=== PATIENT | female | born 1975 | race Caucasian/White ===

== ENCOUNTER → 2017-03-28 | Outpatient (CLI) | payer OTHER ==
--- NOTE | 2017-03-28 16:08 | US ---
EXAMINATION TYPE: US transvaginal DATE OF EXAM: 03/28/2017 8:14 AM COMPARISON: CLINICAL HISTORY: N92.1 Menorrhagia,. Patient stated had endometrial ablation 1 year ago and menses stopped in October 2016, then menses started again March 09, 2017 with intermittent spotting since this LMP. Is taking meds for pain; oral contraceptives were stopped 2 months ago. TECHNIQUE: Transvaginal (TV) per order Date of LMP: 03/09/2017 EXAM MEASUREMENTS: Uterus: 7.3 x 4.1 x 3.0 cm Endometrial Stripe: 0.5 cm Right Ovary: 1.7 x 1.5 x 1.5 cm Left Ovary: 2.2 x 2.2 x 1.6 cm 1. Uterus: Anteverted;C Section scar was noted; multiple Nabothian cysts in CX with largest = 1.1 x 1.0 x 0.7cm 2. Endometrium: thin for day 20 LMP. This may be related to endometrial ablation. The visualization of the endometrial stripe limitation may also be related to endometrial ablation. 3. Right Ovary: better seen TA and wnl 4. Left Ovary: multiple small follicles seen TA 5. Bilateral Adnexa: wnl 6. Posterior cul-de-sac: wnl IMPRESSION: 1. Complex nabothian cyst. 2. Findings within the endometrial canal likely related to prior endometrial ablation.
--- NOTE | 2017-04-02 08:23 | MM ---
Reason for exam: screening (asymptomatic). Last mammogram was performed 6 years and 4 months ago. History: Took hormonal contraceptives for 30 years beginning at age 11. Physical Findings: A clinical breast exam by your physician is recommended on an annual basis and results should be correlated with mammographic findings. MG Screening Mammo w CAD Bilateral CC and MLO view(s) were taken. Prior study comparison: November 17, 2010, bilateral digital screening mammogram. June 25, 2008, mammogram, performed at [facility]. There are scattered fibroglandular densities. No significant changes when compared with prior studies. ASSESSMENT: Negative, BI-RAD 1 RECOMMENDATION: Routine screening mammogram of both breasts in 1 year.
== END | disposition home or self-care (01) ==
LOC: RADUSWWP 07:34
PROVIDERS: ATTEND Obstetrics & Gynecology
DX: Z12.31 Encounter for screening mammogram for malignant neoplasm of breast (principal); N88.8 Other specified noninflammatory disorders of cervix uteri; N92.1 Excessive and frequent menstruation with irregular cycle
CPT/HCPCS: 76830; G0202

== ENCOUNTER 2017-12-06 15:56 | Emergency (ER) | payer OTHER ==
[2017-12-06 16:12] VITALS: BP 127/99; PULSE 106; TEMP 98.9
[2017-12-06 16:26] VITALS: RESP 18
--- NOTE | 2017-12-06 16:33 | ED ---
URI HPI - General Chief Complaint: Upper Respiratory Infection Stated Complaint: Cough Time Seen by Provider: 12/06/17 16:13 Source: patient, RN notes reviewed Mode of arrival: ambulatory Limitations: no limitations - History of Present Illness Initial Comments: This is a 42-year-old female who presents to the emergency department with chief complaint of cough and ear pain. Patient states that her mother and father have recently been diagnosed with influenza A this week. She states that she began to have symptoms on Saturday. She states that she has had a nonproductive cough, bilateral ear pain and runny nose. Patient states that she was treated for bilateral ear infections month and half ago. She states that she has been taking Robitussin and ibuprofen. She denies fever or chills, abdominal pain, nausea or vomiting, diarrhea or constipation. - Related Data Home Medications Medication Instructions Recorded Confirmed Doxepin HCl [SINEquan] 150 mg PO DAILY 06/27/15 02/22/16 Acetaminophen [Tylenol] 325 mg PO Q4H 10/01/15 02/22/16 Melatonin 4 mg PO HS 10/01/15 02/22/16 Previous Rx's Medication Instructions Recorded predniSONE 50 mg PO DAILY #5 tab 02/22/16 Allergies Allergy/AdvReac Type Severity Reaction Status Date / Time diphenhydramine HCl Allergy Unknown Verified 12/06/17 16:12 [From Benadryl] Iodinated Contrast- Oral and Allergy Unknown Verified 12/06/17 16:12 IV Dye [Iodinated Contrast Media - IV Dye] meperidine HCl [From Demerol] Allergy Unknown Verified 12/06/17 16:12 Penicillins Allergy Vomiting Verified 12/06/17 16:12 steroids Allergy Unknown Uncoded 12/06/17 16:12 Review of Systems ROS Statement: Those systems with pertinent positive or pertinent negative responses have been documented in the HPI. ROS Other: All systems not noted in ROS Statement are negative. Past Medical History Past Medical History: Fibromyalgia, Osteoarthritis (OA) Additional Past Medical History / Comment(s): migraines, DDD History of Any Multi-Drug Resistant Organisms: None Reported Past Surgical History: Back Surgery, Section, Orthopedic Surgery Additional Past Surgical History / Comment(s): laprascopy, D&C, sinus surgery, UTERINE ABLASION Past Psychological History: No Psychological Hx Reported Smoking Status: Current every day smoker Past Alcohol Use History: None Reported, Rare Past Drug Use History: None Reported General Exam - General Exam Comments Initial Comments: General: Awake and alert, well-developed; in no apparent distress. Does not appear acutely ill. Afebrile. HEENT: Head atraumatic, normocephalic. Pupils are equal, round and reactive to light. Extraocular movements intact. Oropharynx moist without erythema or exudate. Left TM is pearly with moderate clear effusion. Right TM is pearly without effusion. Neck: Supple. Normal ROM. Cardiovascular: Regular rate and rhythm. No murmurs, rubs or gallops. Chest symmetrical. Respiratory: Lungs clear to auscultation bilaterally. No wheezes, rales or rhonchi. Normal respiratory effort with no use of accessory muscles. Musculoskeletal: Normal ROM, no tenderness bilateral upper and lower extremities. Ambulating normally. Skin: [place], warm and dry without rashes or lesions. Neurological: Alert and oriented x3. CN II-XII grossly intact. Speech is fluent and answers are appropriate. No focal neuro deficits. Psychiatric: Normal mood and affect. No overt signs of depression or anxiety noted. Limitations: no limitations Course Vital Signs 12/06/17 12/06/17 16:09 16:21 Temperature 98.9 F Pulse Rate 106 H Respiratory 22 18 Rate Blood Pressure 127/99 O2 Sat by Pulse 99 Oximetry Medical Decision Making - Medical Decision Making This is a 42-year-old female presents to the emergency department with chief complaint of cold symptoms. Patient has not had any fevers or body aches. She states she has been exposed to her parents who were diagnosed with influenza A. Recommended patient to return if she develops a high spiking fever and body aches. She has had cold symptoms for the past 5 days. Upon presentation, vital signs are stable and she is afebrile. She'll be discharged home. Likely suffering from a viral upper respiratory infection. Patient is in agreement voices understanding. All questions were answered. Disposition Clinical Impression: Upper respiratory infection Disposition: HOME SELF-CARE Condition: Good Instructions: Upper Respiratory Infection (ED) Additional Instructions: Please follow up with primary care provider within 1-2 days. Return to emergency department if symptoms should worsen or any concerns arise. Referrals: Murali Grace MD [Primary Care Provider] - 1-2 days Time of Disposition: 16:38
== END 2017-12-06 16:51 | disposition home or self-care (01) ==
LOC: EC 15:56
DX: J06.9 Acute upper respiratory infection, unspecified (principal); H92.03 Otalgia, bilateral; F17.200 Nicotine dependence, unspecified, uncomplicated; Z79.899 Other long term (current) drug therapy; Z88.0 Allergy status to penicillin; Z88.5 Allergy status to narcotic agent; Z88.8 Allergy status to other drugs, medicaments and biological substances; Z91.041 Radiographic dye allergy status; Z87.39 Personal history of other diseases of the musculoskeletal system and connective tissue; Z20.828 Contact with and (suspected) exposure to other viral communicable diseases
CPT/HCPCS: 99283

== ENCOUNTER 2018-03-26 08:10 | Day surgery (SDC) | payer OTHER ==
[2018-03-24 11:46] VITALS: BMI 38.7
[~2018-03-26 08:10] MED LIST: LACTATED RINGERS 1,000 ML IV SCH; LIDOCAINE 1% 20 ML VIAL (10MG/ML) FOR IV START INTRADERMA PRN
--- NOTE | 2018-03-26 08:14 | P.GSHP ---
History of Present Illness H&P Date: 03/26/18 CHIEF COMPLAINT: GERD and change in bowel habits HISTORY OF PRESENT ILLNESS: The patient is a 42-year-old female who presents with gastroesophageal reflux disease and change in bowel habits. Upper and lower endoscopy were offered for further evaluation and management. PAST MEDICAL HISTORY: Please see list. PAST SURGICAL HISTORY: Please see list. MEDICATIONS: Please see list. ALLERGIES: Please see list. SOCIAL HISTORY: No illicit drug use FAMILY HISTORY: No reports of Crohn disease or ulcerative colitis. REVIEW OF ORGAN SYSTEMS: CONSTITUTIONAL: No reports of fevers or chills. PHYSICAL EXAM: VITAL SIGNS: Stable GENERAL: Well-developed pleasant in no acute distress. HEENT: No scleral icterus. Extraocular movements grossly intact. Moist buccal mucosa. NECK: Supple without lymphadenopathy. CHEST: Unlabored respirations. Equal bilateral excursions. CARDIOVASCULAR: Regular rate and rhythm. Distal 2+ pulses. ABDOMEN: Soft, nondistended. MUSCULOSKELETAL: No clubbing, cyanosis, or edema. ASSESSMENT: 1. Gastroesophageal reflux disease 2. Change in bowel habits PLAN: 1. Recommend proceeding with an upper and lower endoscopy Past Medical History Past Medical History: Fibromyalgia, GERD/Reflux, Osteoarthritis (OA), Skin Disorder Additional Past Medical History / Comment(s): Migraines. DDD. WITH BOWEL MOVEMENT PASSES BLOOD CLOTS FROM RECTUM. ECZEMA. History of Any Multi-Drug Resistant Organisms: None Reported Past Surgical History: Back Surgery, Section, Orthopedic Surgery, Uterine Ablation Additional Past Surgical History / Comment(s): Laprascopy, D&C X2, HYSTEROSCOPY , Sinus Surgery. KNEE SCOPES - 5 ON RT, 2 ON LT. Additional Past Anesthesia/Blood Transfusion Reaction / Comment(s): CRIES WHEN AWAKENING. Smoking Status: Current every day smoker - Past Family History Father Family Medical History: Cancer Additional Family Medical History / Comment(s): SKIN CA Medications and Allergies Home Medications Medication Instructions Recorded Confirmed Type Doxepin HCl [SINEquan] 150 mg PO HS 06/27/15 03/24/18 History Melatonin 10 mg PO HS 10/01/15 03/24/18 History ALPRAZolam [Xanax] 1 mg PO HS 03/24/18 03/24/18 History Cyclobenzaprine [Flexeril] 10 mg PO TID 03/24/18 03/24/18 History FLUoxetine HCL [PROzac] 20 mg PO DAILY 03/24/18 03/24/18 History Hydrocodone/Acetaminophen 1 tab PO QID PRN 03/24/18 03/24/18 History [Hydrocodon-Acetaminoph 7.5-325] Ibuprofen [Motrin] 600 mg PO TID PRN 03/24/18 03/24/18 History Medroxyprogesterone Acetate 150 mg IM Q90D 03/24/18 03/24/18 History [Depo-Provera] Morphine Sulfate 15 mg PO BID 03/24/18 03/24/18 History Morphine Sulfate [Morphine Sulfate 30 mg PO BID 03/24/18 03/24/18 History ER] Omeprazole [PriLOSEC] 20 mg PO AC-BRKFST PRN 03/24/18 03/24/18 History Rizatriptan Benzoate [Rizatriptan] 10 mg PO DAILY PRN 03/24/18 03/24/18 History Allergies Allergy/AdvReac Type Severity Reaction Status Date / Time adhesive Allergy Rash/Hives Verified 03/24/18 11:17 caffeine Allergy Nausea Verified 03/24/18 11:17 diphenhydramine HCl Allergy IF TAKING Verified 03/24/18 11:15 [From Benadryl] MORE THAN 2 TABLETS, ARMS GO NUMB Iodinated Contrast- Oral and Allergy Nausea & Verified 03/24/18 11:15 IV Dye Vomiting, [Iodinated Contrast Media - SEVERE GAINES IV Dye] meperidine HCl [From Demerol] Allergy Rash/Hives; Verified 03/24/18 11:17 LOSS OF VISION TEMPORARY Penicillins Allergy Vomiting Verified 03/24/18 11:17 steroids Allergy INSOMNIA, Uncoded 03/24/18 11:17 INTENSIFIES EFFECTS
[2018-03-26 08:56] VITALS: RESP 16; TEMP 96.4
[2018-03-26] MEDS ORDERED: LIDOCAINE 1% INJ 10MG/ML (20 ML MDV) ONE (09:26)
[2018-03-26] MEDS ORDERED: PROPOFOL 10 MG/ML 20 ML VIAL IV ONE (09:26)
[2018-03-26] MEDS ORDERED: fentaNYL (PF) 50 MCG/ML 2 ML AMP ONE (09:26)
--- NOTE | 2018-03-26 09:39 | P.PCN ---
Date of Procedure: 03/26/18 Description of Procedure: PREOPERATIVE DIAGNOSIS: Gastroesophageal reflux disease. Morbid obesity. POSTOPERATIVE DIAGNOSIS: Morbid obesity. Gastritis. Gastroesophageal reflux disease. Diaphragmatic hiatal hernia without obstruction. OPERATION: Esophagogastroduodenoscopy with biopsies along antrum. SURGEON: Renetta Kendrick MD ANESTHESIA: MAC. INDICATIONS: The patient is a 42-year-old female who presents with a history of reflux disease. Benefits and risks of the procedure were described. Informed consent was obtained. DESCRIPTION: The patient was brought into the endoscopy suite and laid in the left lateral decubitus position. An Olympus gastroscope was passed along the posterior oropharynx down to the distal esophagus where the squamocolumnar junction was encountered at 35 cm from the incisors. The stomach was entered and no bile reflux was found. Additional findings are listed below. Biopsies with cold forceps were obtained of the antrum. The first through third portion of the duodenum was examined and unremarkable. Retroflexion of the scope confirmed Hill grade 3 lower esophageal valve. The squamocolumnar junction demostrated acute LA grade A erosive esophagitis. The stomach was desufflated. The patient tolerated the procedure well. FINDINGS: Squamocolumnar junction 36 cm from the incisors. Diaphragmatic hiatus at 40 cm. Hiatal hernia 4 cm. Hill grade 3 lower esophageal valve. LA grade A erosive esophagitis. Superficial chronic gastritis No active duodenitis. RECOMMENDATIONS: Further recommendations pending results of pathology report. Upper endoscopy as needed.
--- NOTE | 2018-03-26 10:04 | P.PCN ---
Date of Procedure: 03/26/18 Description of Procedure: PREOPERATIVE DIAGNOSIS: Personal history of rectal bleeding. Change in bowel habits POSTOPERATIVE DIAGNOSIS: Personal history of rectal bleeding. Change in bowel habits Tubular adenoma at sigmoid colon Internal hemorrhoids, grade 3 External hemorrhoids, grade 4 Sigmoid diverticulosis OPERATION: Colonoscopy to the ileocecal valve and appendiceal orifice. Colonoscopy with snare polypectomy at 25 cm from the anal verge SURGEON: Renetta Kendrick MD. ANESTHESIA: MAC. INDICATIONS: The patient is a 42-year-old female who presents with change in bowel habits. Benefits and risks were described and informed consent was obtained. DESCRIPTION OF PROCEDURE: The patient had undergone Gatorade, MiraLAX and Dulcolax prep. She had been brought into the operating room and laid in the left lateral decubitus position. After adequate intravenous sedation, the rectum was examined with 2% lidocaine jelly. External hemorrhoids were encountered. The rectal tone was within normal limits. No lesions were palpated in the rectal vault. An Olympus colonoscope was advanced until the ileocecal valve and appendiceal orifice were clearly viewed. The prep was fair with visualization of the mucosal folds. She had a moderately redundant sigmoid colon requiring abdominal wall pressure. The scope was removed with visualization of each mucosal fold. Scattered sigmoid diverticulosis was encountered. Tubular adenoma at 25 cm from the anal verge of 5 mm with snare polypectomy. No evidence of focal colitis was found. Retroflexion of the scope demonstrated grade 3 internal hemorrhoids without active bleeding or inflammation. The colon was desufflated. The patient had tolerated the procedure well. Withdrawal time was over 6 minutes. FINDINGS: Internal hemorrhoids, grade 3 External hemorrhoids, grade 4. No arteriovenous malformations. Removal of 1 polyps - Snare polypectomy 25 cm from the anal verge, 5 mm tubulovillous adenoma polyp at sigmoid colon Sigmoid diverticulosis No focal colitis. RECOMMENDATIONS: Repeat colonoscopy at age 48, in 5 years, 2022 Plan - Discharge Summary New Discharge Prescriptions: No Action Doxepin HCl [SINEquan] 150 mg PO HS Melatonin 10 mg PO HS Ibuprofen [Motrin] 600 mg PO TID PRN PRN Reason: Pain Omeprazole [PriLOSEC] 20 mg PO AC-BRKFST PRN PRN Reason: GERD Rizatriptan Benzoate [Rizatriptan] 10 mg PO DAILY PRN PRN Reason: MIGRAINES ALPRAZolam [Xanax] 1 mg PO HS FLUoxetine HCL [PROzac] 20 mg PO DAILY Cyclobenzaprine [Flexeril] 10 mg PO TID Morphine Sulfate [Morphine Sulfate ER] 30 mg PO BID Morphine Sulfate 15 mg PO BID Medroxyprogesterone Acetate [Depo-Provera] 150 mg IM Q90D Hydrocodone/Acetaminophen [Hydrocodon-Acetaminoph 7.5-325] 1 tab PO QID PRN PRN Reason: Pain Discharge Medication List Doxepin HCl [SINEquan] 150 mg PO HS 06/27/15 [History] Melatonin 10 mg PO HS 10/01/15 [History] ALPRAZolam [Xanax] 1 mg PO HS 03/24/18 [History] Cyclobenzaprine [Flexeril] 10 mg PO TID 03/24/18 [History] FLUoxetine HCL [PROzac] 20 mg PO DAILY 03/24/18 [History] Hydrocodone/Acetaminophen [Hydrocodon-Acetaminoph 7.5-325] 1 tab PO QID PRN [History] Ibuprofen [Motrin] 600 mg PO TID PRN 03/24/18 [History] Medroxyprogesterone Acetate [Depo-Provera] 150 mg IM Q90D 03/24/18 [History] Morphine Sulfate 15 mg PO BID 03/24/18 [History] Morphine Sulfate [Morphine Sulfate ER] 30 mg PO BID 03/24/18 [History] Omeprazole [PriLOSEC] 20 mg PO AC-BRKFST PRN 03/24/18 [History] Rizatriptan Benzoate [Rizatriptan] 10 mg PO DAILY PRN 03/24/18 [History]
[2018-03-26 10:26] VITALS: BP 114/85; PULSE 89
== END 2018-03-26 10:36 | disposition home or self-care (01) ==
LOC: ORWHC2ENDO 08:10
PROVIDERS: ATTEND Surgery Plastic and Reconstructive Surgery
DX: D12.5 Benign neoplasm of sigmoid colon (principal); K63.5 Polyp of colon; K29.50 Unspecified chronic gastritis without bleeding; K57.30 Diverticulosis of large intestine without perforation or abscess without bleeding; K64.8 Other hemorrhoids; K64.4 Residual hemorrhoidal skin tags; M19.90 Unspecified osteoarthritis, unspecified site; M79.7 Fibromyalgia; K62.5 Hemorrhage of anus and rectum; K44.9 Diaphragmatic hernia without obstruction or gangrene; E66.01 Morbid (severe) obesity due to excess calories; K21.9 Gastro-esophageal reflux disease without esophagitis; F32.9 Major depressive disorder, single episode, unspecified; Z79.891 Long term (current) use of opiate analgesic; Z88.0 Allergy status to penicillin; Z88.5 Allergy status to narcotic agent; Z88.8 Allergy status to other drugs, medicaments and biological substances; Z91.041 Radiographic dye allergy status; Z68.38 Body mass index [BMI] 38.0-38.9, adult; F17.200 Nicotine dependence, unspecified, uncomplicated; Z79.899 Other long term (current) drug therapy; Z91.048 Other nonmedicinal substance allergy status
CPT/HCPCS: 81025; 88305; 45385; 43239; J2001; J3010; J2704

== ENCOUNTER 2019-03-12 15:38 | Emergency (ER) | payer OTHER ==
[2019-03-12] MEDS ORDERED: ACETAMINOPHEN TAB 500 MG TAB PO STA (16:14)
--- NOTE | 2019-03-12 16:18 | ED ---
General Adult HPI - General Chief complaint: Chest Pain Stated complaint: Chest heaviness Time Seen by Provider: 03/12/19 15:50 Source: patient, RN notes reviewed Mode of arrival: wheelchair Limitations: no limitations - History of Present Illness Initial comments: This is a 43-year-old female presents emergency room complaining of heaviness on her chest that goes up into her neck. Patient states she's also short of breath and coughing quite a bit. Patient states she has not coughed up any sputum at all. Patient denies any fever or chills. Patient states exertion definitely makes it worse. Patient states she feels as though her heart is racing. Patient denies any lightheadedness or dizziness. Patient denies headache patient denies numbness weakness. Patient denies abdominal pain patient denies nausea vomiting diarrhea. - Related Data Home Medications Medication Instructions Recorded Confirmed Doxepin HCl [SINEquan] 150 mg PO HS 06/27/15 03/12/19 Cyclobenzaprine [Flexeril] 10 mg PO TID 03/24/18 03/12/19 FLUoxetine HCL [PROzac] 20 mg PO DAILY 03/24/18 03/12/19 Hydrocodone/Acetaminophen 1 tab PO QID PRN 03/24/18 03/12/19 [Hydrocodon-Acetaminoph 7.5-325] Ibuprofen [Motrin] 600 mg PO TID PRN 03/24/18 03/12/19 Medroxyprogesterone Acetate 150 mg IM Q90D 03/24/18 03/12/19 [Depo-Provera] Morphine Sulfate [Morphine Sulfate 30 mg PO BID PRN 03/24/18 03/12/19 ER] Omeprazole [PriLOSEC] 20 mg PO AC-BRKFST PRN 03/24/18 03/12/19 ALPRAZolam [Xanax] 0.5 mg PO HS 03/12/19 03/12/19 Melatonin 10 mg PO HS 03/12/19 03/12/19 Morphine Sulfate [Ms Contin] 15 mg PO BID PRN 03/12/19 03/12/19 guaiFENesin [Mucinex] 600 mg PO BID PRN 03/12/19 03/12/19 Previous Rx's Medication Instructions Recorded Azithromycin [Zithromax Tri-Onur] 500 mg PO DAILY #3 tab 03/12/19 Allergies Allergy/AdvReac Type Severity Reaction Status Date / Time adhesive Allergy Rash/Hives Verified 03/12/19 17:25 caffeine Allergy Nausea Verified 03/12/19 17:25 diphenhydramine HCl Allergy IF TAKING Verified 03/12/19 17:25 [From Benadryl] MORE THAN 2 TABLETS, ARMS GO NUMB Iodinated Contrast- Oral and Allergy Nausea & Verified 03/12/19 17:25 IV Dye Vomiting, [Iodinated Contrast Media - SEVERE GAINES IV Dye] meperidine HCl [From Demerol] Allergy Rash/Hives; Verified 03/12/19 17:25 LOSS OF VISION TEMPORARY Penicillins Allergy Vomiting Verified 03/12/19 17:25 steroids Allergy INSOMNIA, Uncoded 03/12/19 15:53 INTENSIFIES EFFECTS Review of Systems ROS Statement: Those systems with pertinent positive or pertinent negative responses have been documented in the HPI. ROS Other: All systems not noted in ROS Statement are negative. Past Medical History Past Medical History: Fibromyalgia, GERD/Reflux, Osteoarthritis (OA), Skin Disorder Additional Past Medical History / Comment(s): Migraines. DDD. WITH BOWEL MOVEMENT PASSES BLOOD CLOTS FROM RECTUM. ECZEMA. History of Any Multi-Drug Resistant Organisms: None Reported Past Surgical History: Back Surgery, Section, Orthopedic Surgery, Uterine Ablation Additional Past Surgical History / Comment(s): Laprascopy, D&C X2, HYSTEROSCOPY, Sinus Surgery. KNEE SCOPES - 5 ON RT, 2 ON LT. Additional Past Anesthesia/Blood Transfusion Reaction / Comment(s): CRIES WHEN AWAKENING. Past Psychological History: Anxiety, Depression, Panic Disorder Smoking Status: Current every day smoker Past Alcohol Use History: None Reported Past Drug Use History: None Reported - Past Family History Father Family Medical History: Cancer Additional Family Medical History / Comment(s): SKIN CA General Exam - General Exam Comments Initial Comments: GENERAL: Patient is well-developed and well-nourished. Patient is nontoxic and well- hydrated and is in mild distress. ENT: Neck is soft and supple. No significant lymphadenopathy is noted. Oropharynx is clear. Moist mucous membranes. Neck has full range of motion without eliciting any pain. EYES: The sclera were anicteric and conjunctiva were pink and moist. Extraocular mo vements were intact and pupils were equal round and reactive to light. Eyelids were unremarkable. PULMONARY: Unlabored respirations. Good breath sounds bilaterally. No audible rales rhonchi or wheezing was noted. CARDIOVASCULAR: There is a regular rate and rhythm without any murmurs gallops or rubs. ABDOMEN: Soft and nontender with normal bowel sounds. No palpable organomegaly was noted. There is no palpable pulsatile mass. SKIN: Skin is clear with no lesions or rashes and otherwise unremarkable. NEUROLOGIC: Patient is alert and oriented x3. Cranial nerves II through XII are grossly intact. Motor and sensory are also intact. Normal speech, volume and content. Symmetrical smile. MUSCULOSKELETAL: Normal extremities with adequate strength and full range of motion. No lower extremity swelling or edema. No calf tenderness. LYMPHATICS: No significant lymphadenopathy is noted PSYCHIATRIC: Normal psychiatric evaluation. Limitations: no limitations Course Vital Signs 03/12/19 03/12/19 03/12/19 15:50 16:10 16:21 Temperature 99.5 F 100.6 F H Pulse Rate 117 H 117 H Respiratory 16 18 Rate Blood Pressure 115/81 120/89 120/89 O2 Sat by Pulse 93 L 92 L 97 Oximetry 03/12/19 03/12/19 03/12/19 16:30 17:00 17:30 Temperature Pulse Rate 114 H 112 H 105 H Respiratory 18 19 19 Rate Blood Pressure 113/81 136/91 119/80 O2 Sat by Pulse 92 L 93 L 94 L Oximetry Medical Decision Making - Medical Decision Making EKG shows sinus tachycardia at 118 bpm GA interval is on a 44 QRS is 90 QT interval 342 QTC is 479. Chest x-ray shows pneumonia. Patient received Rocephin and Zithromax in the emergency department. I spoke with the patient and told her I thought it would be better if we could admit her to the hospital she did not want to be admitted she stated she only lives 4 blocks away and will come back immediately if things worsen. - Lab Data Result diagrams: 03/12/19 16:41 03/12/19 16:41 Lab Results 03/12/19 03/12/19 03/12/19 Range/Units 16:41 16:41 16:41 WBC 11.5 H (3.8-10.6) k/uL RBC 4.74 (3.80-5.40) m/uL Hgb 13.6 (11.4-16.0) gm/dL Hct 41.4 (34.0-46.0) % MCV 87.4 (80.0-100.0) fL MCH 28.8 (25.0-35.0) pg MCHC 32.9 (31.0-37.0) g/dL RDW 14.2 (11.5-15.5) % Plt Count 286 (150-450) k/uL Neutrophils % 71 % Lymphocytes % 22 % Monocytes % 4 % Eosinophils % 2 % Basophils % 0 % Neutrophils # 8.1 H (1.3-7.7) k/uL Lymphocytes # 2.6 (1.0-4.8) k/uL Monocytes # 0.4 (0-1.0) k/uL Eosinophils # 0.3 (0-0.7) k/uL Basophils # 0.0 (0-0.2) k/uL PT (9.0-12.0) sec INR (<1.2) APTT (22.0-30.0) sec D-Dimer (<0.60) mg/L FEU Sodium 137 (137-145) mmol/L Potassium 3.8 (3.5-5.1) mmol/L Chloride 106 (98-107) mmol/L Carbon Dioxide 19 L (22-30) mmol/L Anion Gap 12 mmol/L BUN 13 (7-17) mg/dL Creatinine 0.47 L (0.52-1.04) mg/dL Est GFR (CKD-EPI)AfAm >90 (>60 ml/min/1.73 sqM) Est GFR (CKD-EPI)NonAf >90 (>60 ml/min/1.73 sqM) Glucose 192 H (74-99) mg/dL Plasma Lactic Acid Antione 1.1 (0.7-2.0) mmol/L Calcium 9.5 (8.4-10.2) mg/dL Magnesium 1.7 (1.6-2.3) mg/dL Total Bilirubin 0.6 (0.2-1.3) mg/dL AST 23 (14-36) U/L ALT 24 (9-52) U/L Alkaline Phosphatase 120 (38-126) U/L Troponin I (0.000-0.034) ng/mL NT-Pro-B Natriuret Pep pg/mL Total Protein 7.3 (6.3-8.2) g/dL Albumin 4.2 (3.5-5.0) g/dL 03/12/19 03/12/19 03/12/19 Range/Units 16:41 16:41 16:58 WBC (3.8-10.6) k/uL RBC (3.80-5.40) m/uL Hgb (11.4-16.0) gm/dL Hct (34.0-46.0) % MCV (80.0-100.0) fL MCH (25.0-35.0) pg MCHC (31.0-37.0) g/dL RDW (11.5-15.5) % Plt Count (150-450) k/uL Neutrophils % % Lymphocytes % % Monocytes % % Eosinophils % % Basophils % % Neutrophils # (1.3-7.7) k/uL Lymphocytes # (1.0-4.8) k/uL Monocytes # (0-1.0) k/uL Eosinophils # (0-0.7) k/uL Basophils # (0-0.2) k/uL PT 9.6 (9.0-12.0) sec INR 0.9 (<1.2) APTT 23.5 (22.0-30.0) sec D-Dimer 0.74 H (<0.60) mg/L FEU Sodium (137-145) mmol/L Potassium (3.5-5.1) mmol/L Chloride (98-107) mmol/L Carbon Dioxide (22-30) mmol/L Anion Gap mmol/L BUN (7-17) mg/dL Creatinine (0.52-1.04) mg/dL Est GFR (CKD-EPI)AfAm (>60 ml/min/1.73 sqM) Est GFR (CKD-EPI)NonAf (>60 ml/min/1.73 sqM) Glucose (74-99) mg/dL Plasma Lactic Acid Antione (0.7-2.0) mmol/L Calcium (8.4-10.2) mg/dL Magnesium (1.6-2.3) mg/dL Total Bilirubin (0.2-1.3) mg/dL AST (14-36) U/L ALT (9-52) U/L Alkaline Phosphatase (38-126) U/L Troponin I <0.012 (0.000-0.034) ng/mL NT-Pro-B Natriuret Pep 34 pg/mL Total Protein (6.3-8.2) g/dL Albumin (3.5-5.0) g/dL Disposition Clinical Impression: Pneumonia Disposition: HOME SELF-CARE Condition: Good Instructions (If sedation given, give patient instructions): Bacterial Pneumonia (ED) Prescriptions: Azithromycin [Zithromax Tri-Onur] 500 mg PO DAILY #3 tab Is patient prescribed a controlled substance at d/c from ED?: No When asked, does pt state using other controlled substances?: No Referrals: Murali Grace MD [Primary Care Provider] - 1-2 days Time of Disposition: 20:49
[2019-03-12 16:54] LABS: Basophils % (A) 0 %; Eosinophils # (A) 0.3 k/uL (0-0.7); Eosinophils % (A) 2 %; HCT 41.4 % (34.0-46.0); HGB 13.6 gm/dL (11.4-16.0); Lymphocytes # (A) 2.6 k/uL (1.0-4.8); Lymphocytes % (A) 22 %; MCH 28.8 pg (25.0-35.0); MCHC 32.9 g/dL (31.0-37.0); MCV 87.4 fL (80.0-100.0); Mean Platelet Volume 8.2; Monocytes # (A) 0.4 k/uL (0-1.0); Monocytes % (A) 4 %; Neutrophils # (A) 8.1 k/uL (1.3-7.7); Neutrophils % (A) 71 %; Platelet Count 286 k/uL (150-450); RBC 4.74 m/uL (3.80-5.40); RDW 14.2 % (11.5-15.5); WBC 11.5 k/uL (3.8-10.6)
[2019-03-12 17:01] LABS: ALT 24 U/L (9-52); AST 23 U/L (14-36); Albumin 4.2 g/dL (3.5-5.0); Alkaline Phosphatase 120 U/L (38-126); Anion Gap 12 mmol/L; Blood Urea Nitrogen 13 mg/dL (7-17); Calcium 9.5 mg/dL (8.4-10.2); Carbon Dioxide 19 mmol/L (22-30); Chloride 106 mmol/L (98-107); Glucose 192 mg/dL (74-99); Magnesium 1.7 mg/dL (1.6-2.3); Potassium 3.8 mmol/L (3.5-5.1); Sodium 137 mmol/L (137-145); Total Bilirubin 0.6 mg/dL (0.2-1.3); Total Protein 7.3 g/dL (6.3-8.2)
--- NOTE | 2019-03-12 17:12 | XR ---
EXAMINATION TYPE: XR chest 2V DATE OF EXAM: 03/12/2019 COMPARISON: NONE HISTORY: Short of breath TECHNIQUE: Frontal and lateral views of the chest are obtained. FINDINGS: There is some coarse interstitial and linear density in the lower lung najera. Heart and m ediastinum are normal. There is no pleural effusion. Bony thorax is intact. There are chest leads. IMPRESSION: Interstitial pulmonary infiltrates and atelectasis in the mid and lower lung najera more on the left side. Normal heart. No heart failure.
[2019-03-12] MEDS ORDERED: cefTRIAXone IN SWFI 1,000 MG/10 ML SYRINGE IVP STA ×2 (18:11→20:50)
[2019-03-12 18:43] LABS: INR 0.9 (<1.2); Partial Thromboplastin Time 23.5 sec (22.0-30.0); Prothrombin Time 9.6 sec (9.0-12.0)
[2019-03-12 18:51] LABS: D-Dimer 0.74 mg/L FEU (<0.60)
[2019-03-12] MEDS ORDERED: FAMOTIDINE 20 MG/2 ML VIAL IV STA (19:15)
[2019-03-12] MEDS ORDERED: diphenhydrAMINE 50 MG/ML 1 ML VIAL IVP STA (19:15)
[2019-03-12] MEDS ORDERED: methylPREDNISolone SOD SUCCI 125 MG/2 ML VIAL IV STA (19:15)
--- NOTE | 2019-03-12 20:41 | CT ---
EXAMINATION TYPE: CT chest angio for PE DATE OF EXAM: 03/12/2019 COMPARISON: None HISTORY: Pt c/o chest heaviness, headache. CT DLP: 554.6 mGycm Automated exposure control for dose reduction was used. CONTRAST: CT Chest for pulmonary embolism performed with with IV Contrast, patient injected with 100 mL of Isov ue 370. FINDINGS: There is some patchy atelectasis in the posterior lateral right lower lobe. There is coarse predomina ntly interstitial infiltrate in the left upper lobe and left lower lobe. I see no pulmonary mass. The re is no pleural effusion. There is no evidence of thoracic aortic aneurysm or dissection. There is n o mediastinal adenopathy. There are no hilar masses. There is evidence of some fatty infiltration of the liver. I see no filling defects in the pulmonary arteries. The bony thorax is intact. There is small left pl eural effusion. IMPRESSION: No evidence of pulmonary embolism. Left pleural effusion with diffuse extensive interstitial infiltra te in the left lung. Patchy atelectasis right lower lobe. This is consistent with inflammatory diseas e.
[2019-03-12] MEDS ORDERED: AZITHROMYCIN 500 MG TAB PO STA (20:50)
[2019-03-12 21:19] VITALS: BP 135/90; PULSE 101; RESP 18; TEMP 97.9
== END 2019-03-12 21:29 | disposition home or self-care (01) ==
LOC: EC 15:38
DX: J18.9 Pneumonia, unspecified organism (principal); M79.7 Fibromyalgia; K21.9 Gastro-esophageal reflux disease without esophagitis; M19.90 Unspecified osteoarthritis, unspecified site; F32.9 Major depressive disorder, single episode, unspecified; F41.0 Panic disorder [episodic paroxysmal anxiety]; F17.200 Nicotine dependence, unspecified, uncomplicated; Z79.899 Other long term (current) drug therapy; Z88.0 Allergy status to penicillin; Z88.8 Allergy status to other drugs, medicaments and biological substances; Z91.041 Radiographic dye allergy status; Z91.018 Allergy to other foods; Z91.048 Other nonmedicinal substance allergy status
CPT/HCPCS: 36415; 93005; 85379; 83880; 80053; 83605; 83735; 84484; 85025; 85610; 85730; 87040; 71046; 71275; 99285; 96374; 96375 ×3; 96376; J1200; J2930; J0696; Q9967

== ENCOUNTER → 2019-10-05 | Outpatient (CLI) | payer OTHER ==
[2019-10-05 08:46] LABS: Appearance,Urine Cloudy (Clear); Bacteria,Urine Rare /hpf; Bilirubin,Urine Negative (Negative); Blood,Urine Trace (Negative); Color,Urine Yellow; Glucose,Urine (UA) Trace (Negative); Ketones,Urine Negative (Negative); Leukocyte Esterase,Urine Moderate (Negative); Mucus,Urine Many /hpf; Nitrite,Urine Negative (Negative); PH, Urine 5.5 (5.0-8.0); Protein,Urine 1+ (Negative); RBC,Urine 2 /hpf (0-5); Specific Gravity,Urine 1.029 (1.001-1.035); Squamous Epithelial Cell,Urine 43 /hpf (0-4); Urobilinogen,Urine <2.0 mg/dL (<2.0); WBC,Urine 14 /hpf (0-5)
[2019-10-05 08:47] LABS: Basophils % (A) 0 %; Eosinophils # (A) 0.2 k/uL (0-0.7); Eosinophils % (A) 2 %; Lymphocytes # (A) 4.9 k/uL (1.0-4.8); Lymphocytes % (A) 44 %; MCHC 33.2 g/dL (31.0-37.0); MCV 87.4 fL (80.0-100.0); Mean Platelet Volume 7.1; Monocytes # (A) 0.5 k/uL (0-1.0); Monocytes % (A) 4 %; Neutrophils # (A) 5.4 k/uL (1.3-7.7); Neutrophils % (A) 48 %; Platelet Count 269 k/uL (150-450); RBC 4.81 m/uL (3.80-5.40); RDW 13.4 % (11.5-15.5); WBC 11.2 k/uL (3.8-10.6)
[2019-10-05 11:38] LABS: Erythrocyte Sedimentation Rate 22 mm/hr (0-20)
[2019-10-05 18:17] LABS: Urine Creatinine 274.4 mg/dL
[2019-10-05 18:19] LABS: ALT 21 U/L (8-44); AST 17 U/L (13-35); African American GFR (CKD) 88.9 (60.0-200.0); Alkaline Phosphatase 110 U/L (41-126); BUN/Creat Ratio 15.56 Ratio (12.00-20.00); Calcium 9.6 mg/dL (8.7-10.3); Carbon Dioxide 21.2 mmol/L (21.6-31.8); Chloride 107 mmol/L (96-109); Chol/HDL Ratio 5.05; Cholesterol 192 mg/dL (0-200); Globulin 2.1 g/dL (1.6-3.3); Glucose 184 mg/dL (70-110); LDL Cholesterol,Calculated 101.8 mg/dL (0.0-131.0); Non-African American GFR(CKD) 76.7 (60.0-200.0); Potassium 4.4 mmol/L (3.5-5.5); Rheumatoid Factor, Qnt <4 IU/mL (0-15); Sodium 138 mmol/L (135-145); Total Bilirubin 0.2 mg/dL (0.3-1.2); Total Protein 6.5 g/dL (6.2-8.2)
== END ==
LOC: LABWHC1 07:54
PROVIDERS: ATTEND Internal Medicine
DX: E11.65 Type 2 diabetes mellitus with hyperglycemia (principal); M51.26 Other intervertebral disc displacement, lumbar region; E55.9 Vitamin D deficiency, unspecified
CPT/HCPCS: 36415; 80053; 80061; 81001; 82043; 82306; 82570; 85025; 85652; 86038; 86431

== ENCOUNTER → 2019-10-20 | Outpatient (CLI) | payer OTHER | END | disposition home or self-care (01) | LOC: CPPFTMAIN 12:50 | PROVIDERS: ATTEND Internal Medicine | DX: J45.909 Unspecified asthma, uncomplicated (principal); J98.4 Other disorders of lung | CPT/HCPCS: 94060; 94726; 94729 ==

== ENCOUNTER → 2020-05-30 | Outpatient (CLI) | payer OTHER ==
[2020-05-30 14:03] LABS: Basophils # (A) 0.1 k/uL (0-0.2); Basophils % (A) 1 %; Eosinophils # (A) 0.3 k/uL (0-0.7); Eosinophils % (A) 3 %; HCT 42.2 % (34.0-46.0); HGB 13.7 gm/dL (11.4-16.0); Lymphocytes # (A) 4.2 k/uL (1.0-4.8); Lymphocytes % (A) 39 %; MCH 29.6 pg (25.0-35.0); MCHC 32.4 g/dL (31.0-37.0); MCV 91.4 fL (80.0-100.0); Mean Platelet Volume 8.6; Monocytes # (A) 0.5 k/uL (0-1.0); Monocytes % (A) 4 %; Neutrophils # (A) 5.6 k/uL (1.3-7.7); Neutrophils % (A) 52 %; Platelet Count 261 k/uL (150-450); RBC 4.62 m/uL (3.80-5.40); RDW 13.8 % (11.5-15.5); WBC 10.7 k/uL (3.8-10.6)
[2020-05-31 04:08] LABS: African American GFR (CKD) 102.5 (60.0-200.0); Albumin 4.6 g/dL (3.80-4.90); BUN/Creat Ratio 23.75 Ratio (12.00-20.00); Calcium 9.4 mg/dL (8.7-10.3); Chol/HDL Ratio 4.56; Globulin 2.3 g/dL (1.6-3.3); LDL Cholesterol,Calculated 119.6 mg/dL (0.0-131.0); Non-African American GFR(CKD) 88.4 (60.0-200.0); Potassium 4.6 mmol/L (3.5-5.5); Total Bilirubin 0.3 mg/dL (0.2-1.2); Total Protein 6.9 g/dL (6.2-8.2); VLDL Calculation 33.4 mg/dL (5.00-40.00)
== END | disposition home or self-care (01) ==
LOC: LABWHC1 11:24
PROVIDERS: ATTEND Internal Medicine
DX: E11.65 Type 2 diabetes mellitus with hyperglycemia (principal); E55.9 Vitamin D deficiency, unspecified; Z51.81 Encounter for therapeutic drug level monitoring; Z13.9 Encounter for screening, unspecified
CPT/HCPCS: 36415; 80053; 80061; 82306; 85025; 86803

== ENCOUNTER → 2020-12-06 | Outpatient (CLI) | payer OTHER ==
--- NOTE | 2020-12-06 10:17 | MR ---
EXAMINATION TYPE: MR lumbar spine wo con DATE OF EXAM: 12/06/2020 COMPARISON: MRI lumbar spine October 11, 2017 HISTORY: Lower back pain, Tailbone pain into both legs. Bilateral Hip Pain Left side worse. 2 Falls i n the last year. Prior surgery 2002. TECHNIQUE: Multiplanar, multisequence imaging of the lumbar spine is performed without IV contrast. FINDINGS: Sagittal images of the lumbar spine show vertebral body heights and alignment to appear sta ble and satisfactory. Persistent multilevel disc desiccation with moderate disc space narrowing L5-S1 level. The conus medullaris remains normal in position and signal ending mid L1 level. Heterogeneou s Modic type I endplate changes L5-S1 level. The bone marrow signal intensity otherwise remains withi n normal limits. Axial images show T12-L1, L1-L2, and L2-L3 levels all to remain within normal limits. Axial images at L3-L4 and L4-L5 levels show mild facet degenerative changes bilaterally. Spinal canal is preserved. Patent bilateral neural foramina. No significant change from prior. Axial images at L5-S1 level shows mild to moderate broad disc bulge with small left paracentral disc protrusion component, more focal moderate-sized trusion extending inferiorly on prior study is improv ed on current study. Minimal effacement of the anterior thecal sac. No central S1 nerve effacement or lateral recess effacement on current study. Mild facet arthropathy bilaterally. Mild bilateral neura l foraminal narrowing. Paraspinal muscle bulk is preserved. IMPRESSION: Improved disc herniation L5-S1 level noted. Mild degenerative changes mid to lower lumbar spine otherwise show no significant interval progression. No new significant disc herniations presen t.
== END | disposition home or self-care (01) ==
LOC: RADMRIMAIN 07:46
PROVIDERS: ATTEND Internal Medicine
DX: M47.816 Spondylosis without myelopathy or radiculopathy, lumbar region (principal); G89.29 Other chronic pain
CPT/HCPCS: 72148

== ENCOUNTER 2021-04-17 20:47 | Emergency (ER) | payer OTHER ==
[2021-04-17 21:21] VITALS: BP 125/92; PULSE 112; RESP 18; TEMP 98
--- NOTE | 2021-04-17 21:27 | ED ---
Fall HPI - General Chief Complaint: Fall Stated Complaint: Fall Time Seen by Provider: 04/17/21 21:16 Source: EMS, RN notes reviewed, old records reviewed Mode of arrival: EMS - History of Present Illness Initial Comments: This is a 45-year-old female DF for evaluation patient Dese for evaluation after a fall. Patient has multiple areas of pain but no specific injury. Patient complaining of back pain knee pain and ankle pain etc. 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: no Place Fall Occurred: home Loss of Consciousness: none Prolonged Down Time?: no Symptoms Prior to Fall: none Location - Extremities: Left: Knee, Ankle, Right: Knee, Ankle Severity: moderate Severity scale (1-10): 3 Quality: dull Context: tripped/slipped Associated Symptoms: denies - Related Data Home Medications Medication Instructions Recorded Confirmed Doxepin HCl [SINEquan] 150 mg PO HS 06/27/15 03/12/19 Cyclobenzaprine [Flexeril] 10 mg PO TID 03/24/18 03/12/19 FLUoxetine HCL [PROzac] 20 mg PO DAILY 03/24/18 03/12/19 Hydrocodone/Acetaminophen 1 tab PO QID PRN 03/24/18 03/12/19 [Hydrocodon-Acetaminoph 7.5-325] Ibuprofen [Motrin] 600 mg PO TID PRN 03/24/18 03/12/19 Medroxyprogesterone Acetate 150 mg IM Q90D 03/24/18 03/12/19 [Depo-Provera] Morphine Sulfate [Morphine Sulfate 30 mg PO BID PRN 03/24/18 03/12/19 ER] Omeprazole [PriLOSEC] 20 mg PO AC-BRKFST PRN 03/24/18 03/12/19 ALPRAZolam [Xanax] 0.5 mg PO HS 03/12/19 03/12/19 Melatonin 10 mg PO HS 03/12/19 03/12/19 Morphine Sulfate [Ms Contin] 15 mg PO BID PRN 03/12/19 03/12/19 guaiFENesin [Mucinex] 600 mg PO BID PRN 05/09/19 05/09/19 Previous Rx's Medication Instructions Recorded Azithromycin [Zithromax Tri-Onur] 500 mg PO DAILY #3 tab 03/12/19 Allergies Allergy/AdvReac Type Severity Reaction Status Date / Time adhesive Allergy Rash/Hives Verified 04/17/21 21:17 caffeine Allergy Nausea Verified 04/17/21 21:17 diphenhydramine HCl Allergy IF TAKING Verified 04/17/21 21:17 [From Benadryl] MORE THAN 2 TABLETS, ARMS GO NUMB Iodinated Contrast Media Allergy Nausea & Verified 04/17/21 21:17 [Iodinated Contrast Media - Vomiting, IV Dye] SEVERE GAINES meperidine HCl [From Demerol] Allergy Rash/Hives; Verified 04/17/21 21:17 LOSS OF VISION TEMPORARY Penicillins Allergy Vomiting Verified 04/17/21 21:17 steroids Allergy INSOMNIA, Uncoded 03/12/19 15:53 INTENSIFIES EFFECTS Review of Systems ROS Statement: Those systems with pertinent positive or pertinent negative responses have been documented in the HPI. ROS Other: All systems not noted in ROS Statement are negative. Past Medical History Past Medical History: Fibromyalgia, GERD/Reflux, Osteoarthritis (OA), Skin Disorder Additional Past Medical History / Comment(s): Migraines. DDD. WITH BOWEL MOVEMENT PASSES BLOOD CLOTS FROM RECTUM. ECZEMA. History of Any Multi-Drug Resistant Organisms: None Reported Past Surgical History: Back Surgery, Section, Orthopedic Surgery, Uterine Ablation Additional Past Surgical History / Comment(s): Laprascopy, D&C X2, HYSTEROSCOPY, Sinus Surgery. KNEE SCOPES - 5 ON RT, 2 ON LT. Additional Past Anesthesia/Blood Transfusion Reaction / Comment(s): CRIES WHEN AWAKENING. Past Psychological History: Anxiety, Depression, Panic Disorder Smoking Status: Current every day smoker Past Alcohol Use History: None Reported Past Drug Use History: None Reported - Past Family History Father Family Medical History: Cancer Additional Family Medical History / Comment(s): SKIN CA General Exam Limitations: no limitations General appearance: alert, in no apparent distress, anxious Head exam: Present: atraumatic, normocephalic, normal inspection Eye exam: Present: normal appearance, PERRL, EOMI. Absent: scleral icterus, conjunctival injection, periorbital swelling ENT exam: Present: normal exam, mucous membranes moist Neck exam: Present: normal inspection. Absent: tenderness, meningismus, lymphadenopathy Respiratory exam: Present: normal lung sounds bilaterally. Absent: respiratory distress, wheezes, rales, rhonchi, stridor Cardiovascular Exam: Present: normal rhythm, tachycardia, normal heart sounds. Absent: systolic murmur, diastolic murmur, rubs, gallop, clicks GI/Abdominal exam: Present: soft, normal bowel sounds. Absent: distended, tenderness, guarding, rebound, rigid Extremities exam: Present: normal inspection, full ROM, normal capillary refill. Absent: tenderness, pedal edema, joint swelling, calf tenderness Back exam: Present: normal inspection Neurological exam: Present: alert, oriented X3, CN II-XII intact Psychiatric exam: Present: normal affect, normal mood Skin exam: Present: warm, dry, intact, normal color. Absent: rash Course Vital Signs 04/17/21 21:11 Temperature 98 F Pulse Rate 112 H Respiratory 18 Rate Blood Pressure 125/92 O2 Sat by Pulse 97 Oximetry - Reevaluation(s) Reevaluation #1: Medical records reviewed Symptoms are significantly improved here in the ER Patient informed of results and questions answered Medical Decision Making - Medical Decision Making 45 female after fall and rise pain. X-rays are negative patient can be discharged home - Radiology Data Radiology results: report reviewed (Multiple plain film x-rays taken and areas of pain, no fractures noted), image reviewed Disposition Clinical Impression: Fall Disposition: HOME SELF-CARE Condition: Good Instructions (If sedation given, give patient instructions): Fall Prevention for Older Adults (ED) Is patient prescribed a controlled substance at d/c from ED?: No Referrals: Ana Richardson MD [Primary Care Provider] - 1-2 days
[2021-04-17] MEDS ORDERED: KETOROLAC 15 MG/ML 1 ML VIAL IVP STA (22:27)
[2021-04-17] MEDS ORDERED: MORPHINE SULFATE 4 MG/ML SYRINGE IVP STA (22:27)
[2021-04-17] MEDS ORDERED: ACETAMINOPHEN TAB 500 MG TAB PO STA (22:27)
--- NOTE | 2021-04-17 23:06 | XR ---
EXAMINATION TYPE: XR chest 1V DATE OF EXAM: 04/17/2021 COMPARISON: 03/12/2019 HISTORY: Fall. Pain. TECHNIQUE: Single view FINDINGS: There is poor inspiration. There is some mild atelectasis right lung base. Heart and medias tinum are normal. There are no hilar masses. There is no pleural effusion or pneumothorax. IMPRESSION: Poor inspiration similar to old exam. There is improved aeration of both lungs at the rolando g bases compared to old exam. Mild basilar atelectasis on the right side.
--- NOTE | 2021-04-17 23:07 | XR ---
EXAMINATION TYPE: XR ankle complete RT DATE OF EXAM: 04/17/2021 COMPARISON: NONE HISTORY: Fall. Pain. TECHNIQUE: 3 views FINDINGS: Ankle mortise is anatomic. I see no fracture nor dislocation. Joint spaces are normal. IMPRESSION: Negative right ankle exam.
--- NOTE | 2021-04-17 23:08 | XR ---
EXAMINATION TYPE: XR shoulder complete LT DATE OF EXAM: 04/17/2021 COMPARISON: NONE HISTORY: Fall. Pain. TECHNIQUE: 3 views FINDINGS: Glenohumeral joint is intact. I see no fracture nor dislocation. Joint spaces are normal. IMPRESSION: Negative left shoulder exam. No fracture.
--- NOTE | 2021-04-17 23:08 | XR ---
EXAMINATION TYPE: XR pelvis AP view DATE OF EXAM: 04/17/2021 COMPARISON: NONE HISTORY: Pain TECHNIQUE: Single view FINDINGS: Pelvic ring is intact. Proximal femurs and hip joints appear intact. There is no hip dyspla bianca. Sacroiliac joints are intact. IMPRESSION: Negative exam. No fracture.
--- NOTE | 2021-04-17 23:10 | XR ---
EXAMINATION TYPE: XR knee complete RT DATE OF EXAM: 04/17/2021 COMPARISON: NONE HISTORY: Pain TECHNIQUE: 3 views FINDINGS: Joint spaces are normal. There is no sign of knee joint effusion. There is no fracture nor dislocation. IMPRESSION: Normal right knee.
--- NOTE | 2021-04-17 23:10 | XR ---
EXAMINATION TYPE: XR lumbar spine 2 or 3V DATE OF EXAM: 04/17/2021 COMPARISON: NONE HISTORY: Pain. Fall. TECHNIQUE: 3 views FINDINGS: Lumbar vertebra have normal alignment. There is narrowing of L5-S1 disc space. The other di sc spaces are normal. Posterior elements are intact. Sacroiliac joints are intact. IMPRESSION: Negative lumbar spine exam. No fracture.
== END 2021-04-18 00:20 | disposition home or self-care (01) ==
LOC: EC 20:47
DX: M25.571 Pain in right ankle and joints of right foot (principal); M25.561 Pain in right knee; M25.562 Pain in left knee; M25.572 Pain in left ankle and joints of left foot; M54.5 Low back pain; K21.9 Gastro-esophageal reflux disease without esophagitis; M79.7 Fibromyalgia; G43.909 Migraine, unspecified, not intractable, without status migrainosus; M19.90 Unspecified osteoarthritis, unspecified site; F32.9 Major depressive disorder, single episode, unspecified; F41.9 Anxiety disorder, unspecified; F17.200 Nicotine dependence, unspecified, uncomplicated; Z79.1 Long term (current) use of non-steroidal anti-inflammatories (NSAID); Z79.3 Long term (current) use of hormonal contraceptives; Z88.0 Allergy status to penicillin; Z88.5 Allergy status to narcotic agent; Z88.8 Allergy status to other drugs, medicaments and biological substances; W01.0XXA Fall on same level from slipping, tripping and stumbling without subsequent striking against object, initial encounter; Y92.009 Unspecified place in unspecified non-institutional (private) residence as the place of occurrence of the external cause
CPT/HCPCS: 72100; 72170; 73030; 73562; 73610; 71045; 99284; 96374; 96375; J2270; J1885

== ENCOUNTER 2021-12-25 11:11 | Emergency (ER) | payer OTHER ==
[2021-12-25 11:22] VITALS: RESP 16; TEMP 99.3
[2021-12-25] MEDS ORDERED: SODIUM CHLORIDE 0.9% 1,000 ML IV STA (11:29)
--- NOTE | 2021-12-25 11:42 | ED ---
General Adult HPI - General Chief complaint: Syncope Stated complaint: near syncope Time Seen by Provider: 12/25/21 11:34 Source: patient, RN notes reviewed, old records reviewed Mode of arrival: ambulatory Limitations: no limitations - History of Present Illness Initial comments: 38-year-old female presents to the emergency room having an episode of near syncope when she jumped up out of bed to run down the stairs and check on her mom. Patient states she did not pass out but felt very dizzy. She had not eaten or drank anything today. She did see her primary care doctor last week for her annual checkup and there is no complications or concerns. She also had some left-sided lymphadenopathy however her doctor told her it may take a couple weeks to resolve on its own likely viral. She was not tested for coronavirus or influenza. She does have a low-grade fever today of 99.3. She denies any other pain or discomfort, no shortness of breath or chest pain, no nausea or vomiting or abdominal pain. -: hour(s) (5) Severity scale (1-10): 0 Associated Symptoms: other (dizziness) Treatments Prior to Arrival: none - Related Data Home Medications Medication Instructions Recorded Confirmed Doxepin HCl [SINEquan] 150 mg PO HS 06/27/15 12/25/21 Cyclobenzaprine [Flexeril] 10 mg PO TID PRN 03/24/18 12/25/21 Ibuprofen [Motrin] 600 mg PO TID PRN 03/24/18 12/25/21 Medroxyprogesterone Acetate 150 mg IM Q84D 03/24/18 12/25/21 [Depo-Provera] Morphine Sulfate [Morphine Sulfate 30 mg PO BID PRN 03/24/18 12/25/21 ER] Omeprazole [PriLOSEC] 20 mg PO HS 03/24/18 12/25/21 ALPRAZolam [Xanax] 0.5 mg PO HS 03/12/19 12/25/21 Dulaglutide [Trulicity] 3 mg SQ SA 12/25/21 12/25/21 Erenumab-Aooe [Aimovig 70 mg SQ Q30D 12/25/21 12/25/21 Autoinjector] HYDROcodone/APAP 10-325MG [[place] 1 tab PO QID PRN 12/25/21 12/25/21 10-325] Pioglitazone [Actos] 30 mg PO HS 12/25/21 12/25/21 Rizatriptan Benzoate [Rizatriptan] 10 mg PO DAILY PRN 12/25/21 12/25/21 cloNIDine HCL [Catapres] 0.2 mg PO HS 12/25/21 12/25/21 lisinopriL 2.5 mg PO HS 12/25/21 12/25/21 traZODone HCL 50 mg PO HS 12/25/21 12/25/21 Allergies Allergy/AdvReac Type Severity Reaction Status Date / Time adhesive Allergy Rash/Hives Verified 12/25/21 13:13 meperidine HCl [From Demerol] Allergy Rash/Hives; Verified 12/25/21 13:13 LOSS OF VISION TEMPORARY caffeine AdvReac Nausea Verified 12/25/21 13:13 diphenhydramine HCl AdvReac IF TAKING Verified 12/25/21 13:13 [From Benadryl] MORE THAN 2 TABLETS, ARMS GO NUMB Iodinated Contrast Media AdvReac Nausea & Verified 12/25/21 13:13 [Iodinated Contrast Media - Vomiting, IV Dye] SEVERE GAINES Penicillins AdvReac Vomiting Verified 12/25/21 13:13 steroids AdvReac INSOMNIA, Uncoded 12/25/21 13:13 INTENSIFIES EFFECTS Review of Systems ROS Statement: Those systems with pertinent positive or pertinent negative responses have been documented in the HPI. ROS Other: All systems not noted in ROS Statement are negative. Past Medical History Past Medical History: Fibromyalgia, GERD/Reflux, Osteoarthritis (OA), Skin Disorder Additional Past Medical History / Comment(s): Migraines. DDD. WITH BOWEL MOVEMENT PASSES BLOOD CLOTS FROM RECTUM. ECZEMA. History of Any Multi-Drug Resistant Organisms: None Reported Past Surgical History: Back Surgery, Section, Orthopedic Surgery, Uterine Ablation Additional Past Surgical History / Comment(s): Laprascopy, D&C X2, HYSTEROSCOPY, Sinus Surgery. KNEE SCOPES - 5 ON RT, 2 ON LT. Additional Past Anesthesia/Blood Transfusion Reaction / Comment(s): CRIES WHEN AWAKENING. Past Psychological History: Anxiety, Depression, Panic Disorder Smoking Status: Current every day smoker Past Alcohol Use History: None Reported Past Drug Use History: None Reported - Past Family History Father Family Medical History: Cancer Additional Family Medical History / Comment(s): SKIN CA General Exam Limitations: no limitations General appearance: alert, in no apparent distress Eye exam: Present: normal appearance. Absent: scleral icterus, conjunctival injection, periorbital swelling, periorbital tenderness ENT exam: Present: normal oropharynx, mucous membranes dry Neck exam: Present: normal inspection, lymphadenopathy (left anterior cervical chain). Absent: tenderness, meningismus Respiratory exam: Present: normal lung sounds bilaterally. Absent: respiratory distress, wheezes, rales, rhonchi, stridor, chest wall tenderness, accessory muscle use, decreased breath sounds Cardiovascular Exam: Present: tachycardia, normal heart sounds. Absent: JVD GI/Abdominal exam: Present: soft. Absent: distended, tenderness Extremities exam: Present: normal capillary refill. Absent: tenderness, pedal edema, calf tenderness Neurological exam: Present: alert, oriented X3 Psychiatric exam: Present: normal affect, normal mood Skin exam: Present: warm, dry, intact, normal color. Absent: cyanosis, diaph oretic Course Vital Signs 12/25/21 12/25/21 12/25/21 11:19 11:25 14:38 Temperature 99.3 F Pulse Rate 104 H 90 Pulse Rate [ 105 H Sitting History Faculty Member] Pulse Rate [ 112 H Standing History Faculty Member ] Pulse Rate [ 98 Supine History Faculty Member] Respiratory 16 16 16 Rate Blood Pressure 85/75 98/67 Blood Pressure 91/71 [Right Arm Sitting] Blood Pressure 88/59 [Right Arm Standing] Blood Pressure 96/73 [Right Arm Supine] O2 Sat by Pulse 98 97 Oximetry 12/25/21 15:46 Temperature Pulse Rate 114 H Pulse Rate [ Sitting History Faculty Member] Pulse Rate [ Standing History Faculty Member ] Pulse Rate [ Supine History Faculty Member] Respiratory 16 Rate Blood Pressure 103/79 Blood Pressure [Right Arm Sitting] Blood Pressure [Right Arm Standing] Blood Pressure [Right Arm Supine] O2 Sat by Pulse 97 Oximetry - Reevaluation(s) Reevaluation #1: 12/25/21 15:07 Patient resting on the cart, denies any dizziness. Blood pressure remains 85/47. Second fluid bolus recently hung. Will reassess after IV fluids complete Time: 15:07 EKG Findings - EKG Results: EKG: sinus rhythm (Ventricular rate 102, SC interval 0.177, QRS 0.96, QTC 0.421) Medical Decision Making - Medical Decision Making 38-year-old female presents with near syncope today. EKG shows sinus tachycardia with no significant elevation, frequent PVCs. Troponin is negative at 0.012. Blood glucose level is 225 and she has 4+ glucose in her urine. Patient is a [id number] diabetic on Trulicity. Coronavirus and influenza swabs are negative. Patient was given two liters of normal saline. This near syncope was likely related to orthostatic hypotension was patient changed her position quickly and ran downstairs just prior to her dizzy episode. Patient states she is feeling better and ready to be discharged home. She was directed to follow up with her primary care doctor this week. Return to emergency room if any new or worsening symptoms. She is agreeable to this plan of care. Vital signs are stable. Case discussed with Dr. Jenkins - Lab Data Result diagrams: 12/25/21 12:04 12/25/21 12:04 Lab Results 12/25/21 12/25/21 12/25/21 Range/Units 12:04 12:04 12:04 WBC 12.5 H (3.8-10.6) k/uL RBC 4.60 (3.80-5.40) m/uL Hgb 14.3 (11.4-16.0) gm/dL Hct 41.2 (34.0-46.0) % MCV 89.6 (80.0-100.0) fL MCH 31.2 (25.0-35.0) pg MCHC 34.8 (31.0-37.0) g/dL RDW 13.2 (11.5-15.5) % Plt Count 252 (150-450) k/uL MPV 8.9 Neutrophils % 64 % Lymphocytes % 28 % Monocytes % 5 % Eosinophils % 1 % Basophils % 1 % Neutrophils # 8.0 H (1.3-7.7) k/uL Lymphocytes # 3.5 (1.0-4.8) k/uL Monocytes # 0.6 (0-1.0) k/uL Eosinophils # 0.1 (0-0.7) k/uL Basophils # 0.1 (0-0.2) k/uL PT 10.2 (9.0-12.0) sec INR 0.9 (<1.2) APTT 22.5 (22.0-30.0) sec Sodium (137-145) mmol/L Potassium (3.5-5.1) mmol/L Chloride (98-107) mmol/L Carbon Dioxide (22-30) mmol/L Anion Gap mmol/L BUN (7-17) mg/dL Creatinine (0.52-1.04) mg/dL Est GFR (CKD-EPI)AfAm (>60 ml/min/1.73 sqM) Est GFR (CKD-EPI)NonAf (>60 ml/min/1.73 sqM) Glucose (74-99) mg/dL Calcium (8.4-10.2) mg/dL Magnesium (1.6-2.3) mg/dL Total Bilirubin (0.2-1.3) mg/dL AST (14-36) U/L ALT (4-34) U/L Alkaline Phosphatase (38-126) U/L Troponin I (0.000-0.034) ng/mL Total Protein (6.3-8.2) g/dL Albumin (3.5-5.0) g/dL Urine Color Yellow Urine Appearance Cloudy H (Clear) Urine pH 6.0 (5.0-8.0) Ur Specific [place] 1.022 (1.001-1.035) Urine Protein Trace H (Negative) Urine Glucose (UA) 4+ H (Negative) Urine Ketones Negative (Negative) Urine Blood Negative (Negative) Urine Nitrite Negative (Negative) Urine Bilirubin Negative (Negative) Urine Urobilinogen <2.0 (<2.0) mg/dL Ur Leukocyte Esterase Negative (Negative) Urine RBC 2 (0-5) /hpf Urine WBC 4 (0-5) /hpf Ur Squamous Epith Cells 8 H (0-4) /hpf Urine Bacteria Rare H (None) /hpf Hyaline Casts 1 (0-2) /lpf Urine Mucus Rare H (None) /hpf Influenza Type A (PCR) (Not Detectd) Influenza Type B (PCR) (Not Detectd) RSV (PCR) (Not Detectd) SARS-CoV-2 (PCR) (Not Detectd) 12/25/21 12/25/21 12/25/21 Range/Units 12:04 12:04 12:04 WBC (3.8-10.6) k/uL RBC (3.80-5.40) m/uL Hgb (11.4-16.0) gm/dL Hct (34.0-46.0) % MCV (80.0-100.0) fL MCH (25.0-35.0) pg MCHC (31.0-37.0) g/dL RDW (11.5-15.5) % Plt Count (150-450) k/uL MPV Neutrophils % % Lymphocytes % % Monocytes % % Eosinophils % % Basophils % % Neutrophils # (1.3-7.7) k/uL Lymphocytes # (1.0-4.8) k/uL Monocytes # (0-1.0) k/uL Eosinophils # (0-0.7) k/uL Basophils # (0-0.2) k/uL PT (9.0-12.0) sec INR (<1.2) APTT (22.0-30.0) sec Sodium 136 L (137-145) mmol/L Potassium 3.7 (3.5-5.1) mmol/L Chloride 106 (98-107) mmol/L Carbon Dioxide 20 L (22-30) mmol/L Anion Gap 10 mmol/L BUN 19 H (7-17) mg/dL Creatinine 0.70 (0.52-1.04) mg/dL Est GFR (CKD-EPI)AfAm >90 (>60 ml/min/1.73 sqM) Est GFR (CKD-EPI)NonAf >90 (>60 ml/min/1.73 sqM) Glucose 225 H (74-99) mg/dL Calcium 9.8 (8.4-10.2) mg/dL Magnesium 1.8 (1.6-2.3) mg/dL Total Bilirubin 0.7 (0.2-1.3) mg/dL AST 48 H (14-36) U/L ALT 55 H (4-34) U/L Alkaline Phosphatase 77 (38-126) U/L Troponin I <0.012 (0.000-0.034) ng/mL Total Protein 7.5 (6.3-8.2) g/dL Albumin 4.0 (3.5-5.0) g/dL Urine Color Urine Appearance (Clear) Urine pH (5.0-8.0) Ur Specific [place] (1.001-1.035) Urine Protein (Negative) Urine Glucose (UA) (Negative) Urine Ketones (Negative) Urine Blood (Negative) Urine Nitrite (Negative) Urine Bilirubin (Negative) Urine Urobilinogen (<2.0) mg/dL Ur Leukocyte Esterase (Negative) Urine RBC (0-5) /hpf Urine WBC (0-5) /hpf Ur Squamous Epith Cells (0-4) /hpf Urine Bacteria (None) /hpf Hyaline Casts (0-2) /lpf Urine Mucus (None) /hpf Influenza Type A (PCR) Not Detected (Not Detectd) Influenza Type B (PCR) Not Detected (Not Detectd) RSV (PCR) Not Detected (Not Detectd) SARS-CoV-2 (PCR) Not Detected (Not Detectd) Disposition Clinical Impression: Dizziness Disposition: HOME SELF-CARE Condition: Good Additional Instructions: Increase your fluid intake. Follow-up with the primary care doctor next week. Return to the emergency room with any new or worsening symptoms. Is patient prescribed a controlled substance at d/c from ED?: No Referrals: Ana Richardson MD [Primary Care Provider] - 1-2 days Time of Disposition: 16:02
[2021-12-25 12:19] LABS: Basophils # (A) 0.1 k/uL (0-0.2); Basophils % (A) 1 %; Eosinophils # (A) 0.1 k/uL (0-0.7); Eosinophils % (A) 1 %; HCT 41.2 % (34.0-46.0); HGB 14.3 gm/dL (11.4-16.0); Lymphocytes # (A) 3.5 k/uL (1.0-4.8); Lymphocytes % (A) 28 %; MCH 31.2 pg (25.0-35.0); MCHC 34.8 g/dL (31.0-37.0); MCV 89.6 fL (80.0-100.0); Mean Platelet Volume 8.9; Monocytes # (A) 0.6 k/uL (0-1.0); Monocytes % (A) 5 %; Neutrophils % (A) 64 %; Platelet Count 252 k/uL (150-450); RDW 13.2 % (11.5-15.5); WBC 12.5 k/uL (3.8-10.6)
[2021-12-25 12:35] LABS: ALT 55 U/L (4-34); AST 48 U/L (14-36); African American GFR (CKD) >90 (>60 ml/min/1.73 sqM); Alkaline Phosphatase 77 U/L (38-126); Anion Gap 10 mmol/L; Blood Urea Nitrogen 19 mg/dL (7-17); Calcium 9.8 mg/dL (8.4-10.2); Carbon Dioxide 20 mmol/L (22-30); Chloride 106 mmol/L (98-107); Glucose 225 mg/dL (74-99); Magnesium 1.8 mg/dL (1.6-2.3); Non-African American GFR(CKD) >90 (>60 ml/min/1.73 sqM); Potassium 3.7 mmol/L (3.5-5.1); Sodium 136 mmol/L (137-145); Total Bilirubin 0.7 mg/dL (0.2-1.3); Total Protein 7.5 g/dL (6.3-8.2)
[2021-12-25 12:41] LABS: Appearance,Urine Cloudy (Clear); Bacteria,Urine Rare /hpf; Bilirubin,Urine Negative (Negative); Blood,Urine Negative (Negative); Color,Urine Yellow; Glucose,Urine (UA) 4+ (Negative); Hyaline Casts,Urine 1 /lpf (0-2); INR 0.9 (<1.2); Ketones,Urine Negative (Negative); Leukocyte Esterase,Urine Negative (Negative); Mucus,Urine Rare /hpf; Nitrite,Urine Negative (Negative); Partial Thromboplastin Time 22.5 sec (22.0-30.0); Protein,Urine Trace (Negative); Prothrombin Time 10.2 sec (9.0-12.0); RBC,Urine 2 /hpf (0-5); Specific Gravity,Urine 1.022 (1.001-1.035); Squamous Epithelial Cell,Urine 8 /hpf (0-4); Urobilinogen,Urine <2.0 mg/dL (<2.0); WBC,Urine 4 /hpf (0-5)
--- NOTE | 2021-12-25 13:15 | XR ---
EXAMINATION TYPE: XR chest 2V DATE OF EXAM: 12/25/2021 COMPARISON: 04/17/2021 TECHNIQUE: PA and lateral views submitted. HISTORY: Syncope FINDINGS: The lungs are clear and there is no pneumothorax, pleural effusion, or focal pneumonia. Hyperinflat ion suggests COPD. IMPRESSION: 1. No acute process.
[2021-12-25 13:18] LABS: Influenza A Not Detected (Not Detectd); Influenza B Not Detected (Not Detectd)
[2021-12-25] MEDS ORDERED: SODIUM CHLORIDE 0.9% 1,000 ML IV ONE (13:46)
[2021-12-25 15:47] VITALS: BP 103/79; PULSE 114
== END 2021-12-25 16:34 | disposition home or self-care (01) ==
LOC: EC 11:11
DX: R42 Dizziness and giddiness (principal); Z20.822 Contact with and (suspected) exposure to COVID-19; Z88.0 Allergy status to penicillin; M19.90 Unspecified osteoarthritis, unspecified site; M79.7 Fibromyalgia; K21.9 Gastro-esophageal reflux disease without esophagitis; F41.9 Anxiety disorder, unspecified; F32.A Depression, unspecified; E11.9 Type 2 diabetes mellitus without complications; F17.200 Nicotine dependence, unspecified, uncomplicated; Z79.899 Other long term (current) drug therapy; Z88.8 Allergy status to other drugs, medicaments and biological substances; Z79.84 Long term (current) use of oral hypoglycemic drugs
CPT/HCPCS: 36415; 71046; 80053; 81001; 83735; 84484; 85025; 85610; 85730; 87636; 93005; 96360; 99284

== ENCOUNTER 2021-12-26 19:35 | Emergency (ER) | payer OTHER ==
[2021-12-26] MEDS ORDERED: SODIUM CHLORIDE 0.9% 1,000 ML IV STA (19:53)
--- NOTE | 2021-12-26 20:06 | ED ---
General Adult HPI - General Chief complaint: Recheck/Abnormal Lab/Rx Stated complaint: LOW BP Time Seen by Provider: 12/26/21 19:47 Source: patient, RN notes reviewed, old records reviewed Mode of arrival: ambulatory - History of Present Illness Initial comments: 38-year-old female presents for reevaluation of lightheadedness, and low blood pressure. Patient was previously diagnosed with hypertension and was on lisinopril. She had been off his medication for some time secondary to not having a primary care physician. She was started back on lisinopril yesterday and had a significant drop in her blood pressure requiring ER evaluation. She states that today she's still felt somewhat lightheaded and is checked her blood pressure on multiple occasions and has had measurements in the 80s. She denies central chest pain. No vomiting. No dyspnea. - Related Data Home Medications Medication Instructions Recorded Confirmed Doxepin HCl [SINEquan] 150 mg PO HS 06/27/15 12/25/21 Cyclobenzaprine [Flexeril] 10 mg PO TID PRN 03/24/18 12/25/21 Ibuprofen [Motrin] 600 mg PO TID PRN 03/24/18 12/25/21 Medroxyprogesterone Acetate 150 mg IM Q84D 03/24/18 12/25/21 [Depo-Provera] Morphine Sulfate [Morphine Sulfate 30 mg PO BID PRN 03/24/18 12/25/21 ER] Omeprazole [PriLOSEC] 20 mg PO HS 03/24/18 12/25/21 ALPRAZolam [Xanax] 0.5 mg PO HS 03/12/19 12/25/21 Dulaglutide [Trulicity] 3 mg SQ SA 12/25/21 12/25/21 Erenumab-Aooe [Aimovig 70 mg SQ Q30D 12/25/21 12/25/21 Autoinjector] HYDROcodone/APAP 10-325MG [[place] 1 tab PO QID PRN 12/25/21 12/25/21 10-325] Pioglitazone [Actos] 30 mg PO HS 12/25/21 12/25/21 Rizatriptan Benzoate [Rizatriptan] 10 mg PO DAILY PRN 12/25/21 12/25/21 cloNIDine HCL [Catapres] 0.2 mg PO HS 12/25/21 12/25/21 lisinopriL 2.5 mg PO HS 12/25/21 12/25/21 traZODone HCL 50 mg PO HS 12/25/21 12/25/21 Allergies Allergy/AdvReac Type Severity Reaction Status Date / Time adhesive Allergy Rash/Hives Verified 12/26/21 19:39 meperidine HCl [From Demerol] Allergy Rash/Hives; Verified 12/26/21 19:39 LOSS OF VISION TEMPORARY caffeine AdvReac Nausea Verified 12/26/21 19:39 diphenhydramine HCl AdvReac IF TAKING Verified 12/26/21 19:39 [From Benadryl] MORE THAN 2 TABLETS, ARMS GO NUMB Iodinated Contrast Media AdvReac Nausea & Verified 12/26/21 19:39 [Iodinated Contrast Media - Vomiting, IV Dye] SEVERE GAINES Penicillins AdvReac Vomiting Verified 12/26/21 19:39 steroids AdvReac INSOMNIA, Uncoded 12/26/21 19:39 INTENSIFIES EFFECTS Review of Systems ROS Statement: Those systems with pertinent positive or pertinent negative responses have been documented in the HPI. ROS Other: All systems not noted in ROS Statement are negative. Past Medical History Past Medical History: Fibromyalgia, GERD/Reflux, Osteoarthritis (OA), Skin Disorder Additional Past Medical History / Comment(s): Migraines. DDD. WITH BOWEL MOVEMENT PASSES BLOOD CLOTS FROM RECTUM. ECZEMA. History of Any Multi-Drug Resistant Organisms: None Reported Past Surgical History: Back Surgery, Section, Orthopedic Surgery, Uterine Ablation Additional Past Surgical History / Comment(s): Laprascopy, D&C X2, HYSTEROSCOPY, Sinus Surgery. KNEE SCOPES - 5 ON RT, 2 ON LT. Additional Past Anesthesia/Blood Transfusion Reaction / Comment(s): CRIES WHEN AWAKENING. Past Psychological History: Anxiety, Depression, Panic Disorder Smoking Status: Current every day smoker Past Alcohol Use History: None Reported Past Drug Use History: None Reported - Past Family History Father Family Medical History: Cancer Additional Family Medical History / Comment(s): SKIN CA General Exam General appearance: alert, in no apparent distress Head exam: Present: atraumatic, normocephalic Eye exam: Present: normal appearance, PERRL ENT exam: Present: mucous membranes dry Neck exam: Present: normal inspection. Absent: tenderness, meningismus Respiratory exam: Present: normal lung sounds bilaterally. Absent: respiratory distress, wheezes Cardiovascular Exam: Present: regular rate, normal rhythm GI/Abdominal exam: Present: soft. Absent: distended, tenderness, guarding, rebound Extremities exam: Present: normal inspection, normal capillary refill. Absent: pedal edema Neurological exam: Present: alert, oriented X3, CN II-XII intact. Absent: motor sensory deficit Psychiatric exam: Present: normal affect, normal mood Skin exam: Present: warm, dry, intact. Absent: cyanosis, diaphoretic Course Vital Signs 12/26/21 19:36 Temperature 98.6 F Pulse Rate 100 Respiratory 18 Rate Blood Pressure 126/76 O2 Sat by Pulse 98 Oximetry EKG Findings - EKG Comments: EKG Findings:: EKG sinus tachycardia PVC, rate of 104 NC interval 173, QRS duration 101, QTC 414 Medical Decision Making - Medical Decision Making 46-year-old female presenting for reevaluation. Patient will is in sinus rhythm. Blood pressure initially stable, remained stable while in the emergency department. She has a normal CBC, mild hypokalemia which is replaced. Her urinalysis is contaminated. Her blood sugars continued to be elevated. She is counseled on her diabetes and maintaining hydration. She will not start the lisinopril which she taking yesterday until followed up with her primary care physician. She will monitor her blood pressure at home and continue to stay hydrated. - Lab Data Result diagrams: 12/26/21 20:16 12/26/21 20:16 Lab Results 12/26/21 12/26/21 12/26/21 Range/Units 20:16 20:16 20:16 WBC 9.9 (3.8-10.6) k/uL RBC 4.00 (3.80-5.40) m/uL Hgb 12.7 (11.4-16.0) gm/dL Hct 35.9 (34.0-46.0) % MCV 89.7 (80.0-100.0) fL MCH 31.8 (25.0-35.0) pg MCHC 35.4 (31.0-37.0) g/dL RDW 13.3 (11.5-15.5) % Plt Count 248 (150-450) k/uL MPV 9.0 Neutrophils % 57 % Lymphocytes % 34 % Monocytes % 5 % Eosinophils % 2 % Basophils % 1 % Neutrophils # 5.7 (1.3-7.7) k/uL Lymphocytes # 3.4 (1.0-4.8) k/uL Monocytes # 0.5 (0-1.0) k/uL Eosinophils # 0.2 (0-0.7) k/uL Basophils # 0.1 (0-0.2) k/uL PT 10.2 (9.0-12.0) sec INR 0.9 (<1.2) APTT 23.6 (22.0-30.0) sec Sodium (137-145) mmol/L Potassium (3.5-5.1) mmol/L Chloride (98-107) mmol/L Carbon Dioxide (22-30) mmol/L Anion Gap mmol/L BUN (7-17) mg/dL Creatinine (0.52-1.04) mg/dL Est GFR (CKD-EPI)AfAm (>60 ml/min/1.73 sqM) Est GFR (CKD-EPI)NonAf (>60 ml/min/1.73 sqM) Glucose (74-99) mg/dL Calcium (8.4-10.2) mg/dL Total Bilirubin (0.2-1.3) mg/dL AST (14-36) U/L ALT (4-34) U/L Alkaline Phosphatase (38-126) U/L Troponin I (0.000-0.034) ng/mL Total Protein (6.3-8.2) g/dL Albumin (3.5-5.0) g/dL Urine Color Yellow Urine Appearance Cloudy H (Clear) Urine pH 6.0 (5.0-8.0) Ur Specific [place] 1.020 (1.001-1.035) Urine Protein 1+ H (Negative) Urine Glucose (UA) Negative (Negative) Urine Ketones Negative (Negative) Urine Blood Small H (Negative) Urine Nitrite Negative (Negative) Urine Bilirubin Negative (Negative) Urine Urobilinogen 2.0 (<2.0) mg/dL Ur Leukocyte Esterase Trace H (Negative) Urine RBC 29 H (0-5) /hpf Urine WBC 10 H (0-5) /hpf Ur Squamous Epith Cells 26 H (0-4) /hpf Urine Bacteria Rare H (None) /hpf Urine Mucus Moderate H (None) /hpf 02/22/22 02/22/22 Range/Units 20:16 20:16 WBC (3.8-10.6) k/uL RBC (3.80-5.40) m/uL Hgb (11.4-16.0) gm/dL Hct (34.0-46.0) % MCV (80.0-100.0) fL MCH (25.0-35.0) pg MCHC (31.0-37.0) g/dL RDW (11.5-15.5) % Plt Count (150-450) k/uL MPV Neutrophils % % Lymphocytes % % Monocytes % % Eosinophils % % Basophils % % Neutrophils # (1.3-7.7) k/uL Lymphocytes # (1.0-4.8) k/uL Monocytes # (0-1.0) k/uL Eosinophils # (0-0.7) k/uL Basophils # (0-0.2) k/uL PT (9.0-12.0) sec INR (<1.2) APTT (22.0-30.0) sec Sodium 137 (137-145) mmol/L Potassium 3.3 L (3.5-5.1) mmol/L Chloride 110 H (98-107) mmol/L Carbon Dioxide 18 L (22-30) mmol/L Anion Gap 9 mmol/L BUN 13 (7-17) mg/dL Creatinine 0.60 (0.52-1.04) mg/dL Est GFR (CKD-EPI)AfAm >90 (>60 ml/min/1.73 sqM) Est GFR (CKD-EPI)NonAf >90 (>60 ml/min/1.73 sqM) Glucose 216 H (74-99) mg/dL Calcium 9.2 (8.4-10.2) mg/dL Total Bilirubin 0.5 (0.2-1.3) mg/dL AST 34 (14-36) U/L ALT 44 H (4-34) U/L Alkaline Phosphatase 81 (38-126) U/L Troponin I <0.012 (0.000-0.034) ng/mL Total Protein 6.9 (6.3-8.2) g/dL Albumin 3.7 (3.5-5.0) g/dL Urine Color Urine Appearance (Clear) Urine pH (5.0-8.0) Ur Specific [place] (1.001-1.035) Urine Protein (Negative) Urine Glucose (UA) (Negative) Urine Ketones (Negative) Urine Blood (Negative) Urine Nitrite (Negative) Urine Bilirubin (Negative) Urine Urobilinogen (<2.0) mg/dL Ur Leukocyte Esterase (Negative) Urine RBC (0-5) /hpf Urine WBC (0-5) /hpf Ur Squamous Epith Cells (0-4) /hpf Urine Bacteria (None) /hpf Urine Mucus (None) /hpf Disposition Clinical Impression: Hypokalemia, Dehydration Disposition: HOME SELF-CARE Condition: Fair Instructions (If sedation given, give patient instructions): Dehydration (ED) Is patient prescribed a controlled substance at d/c from ED?: No Referrals: Ana Richardson MD [Primary Care Provider] - 1-2 days Time of Disposition: 21:08
[2021-12-26 20:42] LABS: Basophils # (A) 0.1 k/uL (0-0.2); Basophils % (A) 1 %; Eosinophils # (A) 0.2 k/uL (0-0.7); Eosinophils % (A) 2 %; HCT 35.9 % (34.0-46.0); HGB 12.7 gm/dL (11.4-16.0); Lymphocytes # (A) 3.4 k/uL (1.0-4.8); Lymphocytes % (A) 34 %; MCH 31.8 pg (25.0-35.0); MCHC 35.4 g/dL (31.0-37.0); MCV 89.7 fL (80.0-100.0); Monocytes # (A) 0.5 k/uL (0-1.0); Monocytes % (A) 5 %; Neutrophils # (A) 5.7 k/uL (1.3-7.7); Neutrophils % (A) 57 %; Platelet Count 248 k/uL (150-450); RDW 13.3 % (11.5-15.5); WBC 9.9 k/uL (3.8-10.6)
[2021-12-26 20:49] LABS: ALT 44 U/L (4-34); AST 34 U/L (14-36); African American GFR (CKD) >90 (>60 ml/min/1.73 sqM); Albumin 3.7 g/dL (3.5-5.0); Alkaline Phosphatase 81 U/L (38-126); Anion Gap 9 mmol/L; Blood Urea Nitrogen 13 mg/dL (7-17); Calcium 9.2 mg/dL (8.4-10.2); Carbon Dioxide 18 mmol/L (22-30); Chloride 110 mmol/L (98-107); Glucose 216 mg/dL (74-99); INR 0.9 (<1.2); Non-African American GFR(CKD) >90 (>60 ml/min/1.73 sqM); Partial Thromboplastin Time 23.6 sec (22.0-30.0); Potassium 3.3 mmol/L (3.5-5.1); Prothrombin Time 10.2 sec (9.0-12.0); Sodium 137 mmol/L (137-145); Total Bilirubin 0.5 mg/dL (0.2-1.3); Total Protein 6.9 g/dL (6.3-8.2)
[2021-12-26 20:50] LABS: Appearance,Urine Cloudy (Clear); Bacteria,Urine Rare /hpf; Bilirubin,Urine Negative (Negative); Blood,Urine Small (Negative); Color,Urine Yellow; Glucose,Urine (UA) Negative (Negative); Ketones,Urine Negative (Negative); Leukocyte Esterase,Urine Trace (Negative); Mucus,Urine Moderate /hpf; Nitrite,Urine Negative (Negative); Protein,Urine 1+ (Negative); RBC,Urine 29 /hpf (0-5); Squamous Epithelial Cell,Urine 26 /hpf (0-4); WBC,Urine 10 /hpf (0-5)
[2021-12-26] MEDS ORDERED: POTASSIUM CHLORIDE ER 20 MEQ TAB.ER PO STA (21:03)
[2021-12-26 22:02] VITALS: BP 106/70; PULSE 99; RESP 16; TEMP 98.9
== END 2021-12-26 22:22 | disposition home or self-care (01) ==
LOC: EC 19:35
DX: E87.6 Hypokalemia (principal); E86.0 Dehydration; K21.9 Gastro-esophageal reflux disease without esophagitis; M79.7 Fibromyalgia; M19.90 Unspecified osteoarthritis, unspecified site; F41.9 Anxiety disorder, unspecified; F32.A Depression, unspecified; E11.9 Type 2 diabetes mellitus without complications; F17.200 Nicotine dependence, unspecified, uncomplicated; Z88.0 Allergy status to penicillin; Z88.8 Allergy status to other drugs, medicaments and biological substances; Z79.84 Long term (current) use of oral hypoglycemic drugs
CPT/HCPCS: 36415; 80053; 81001; 84484; 85025; 85610; 85730; 93005; 96360; 96361; 99284

== ENCOUNTER → 2022-07-31 | Outpatient (CLI) | payer OTHER ==
--- NOTE | 2022-07-31 22:56 | US ---
EXAMINATION TYPE: US thyroid st tissue head/neck DATE OF EXAM: 07/31/2022 COMPARISON: NONE CLINICAL HISTORY: R59.0 enlarged lymph nodes. Patient states she feels swelling on left lateral neck that comes and goes x 1 year. Area of concern scanned. Prominent lymph node seen with short axis = 0.5 cm and cortex= 5.1 mm. Contralateral images taken. Prominent lymph node seen right lateral neck with short axis = 0.6 cm. A nd cortex 9 mm IMPRESSION: Prominent lymph nodes seen in the bilateral neck with eccentric cortical thickening but measures subcentimeter in short axis. No concerning solid or cystic mass noted.
== END | disposition home or self-care (01) ==
LOC: RADUSWWP 16:55
PROVIDERS: ATTEND Family Medicine
DX: R59.0 Localized enlarged lymph nodes (principal)
CPT/HCPCS: 76536

== ENCOUNTER → 2022-10-18 | Outpatient (CLI) | payer OTHER ==
--- NOTE | 2022-10-18 13:12 | CT ---
EXAMINATION TYPE: CT soft tissue neck wo con CT DLP: 683.7 mGycm, Automated exposure control for dose reduction was used. DATE OF EXAM: 10/18/2022 12:34 PM COMPARISON: Thyroid ultrasound 07/31/2022. CLINICAL INDICATION:Female, 47 years old with history of R59.0 LOCALIZED ENLARGED LYMPH NODES; , Left sided posterior ear pain and jaw pain x2 years. TECHNIQUE: Standard enhanced CT of the neck. Axial sections with coronal and sagittal reformats were obtained. Contrast used: none Oral contrast used: none. FINDINGS: Brain: Visualized portions are grossly unremarkable. Orbits: Unremarkable Sinuses: Retention cyst within the right posterior maxillary sinus. Spaces of the neck: Clear and symmetric. Musculoskeletal: No acute osseous pathology. Lymph nodes: Multiple nonenlarged lymph nodes are seen along both anterior chains of the neck. Vascular structures: Visualized major arteries are patent without evidence of aneurysm. Thoracic Inlet/airway: Airway is patent. The lung apices are clear. Soft tissues/Thyroid: Thyroid and remainder of the soft tissues are unremarkable. Other: none. IMPRESSION No definite evidence for significant abnormality to explain the patient's left-sided posterior pain a nd jaw pain.
== END | disposition home or self-care (01) ==
LOC: RADCTMAIN 11:57
PROVIDERS: ATTEND Family Medicine
DX: R59.0 Localized enlarged lymph nodes (principal); R68.84 Jaw pain
CPT/HCPCS: 70490

== ENCOUNTER → 2023-03-15 | Outpatient (CLI) | payer OTHER ==
--- NOTE | 2023-03-18 18:47 | MM ---
Reason for Exam: Screening (asymptomatic). Last mammogram was performed 6 year(s) and 0 month(s) ago. Patient History: Menarche at age 7. First Full-Term at age 26. Currently using Hormonal Contraceptives, starting at age 11. Risk Values: [place] 5 year model risk: 1.1%. NCI Lifetime model risk: 11.0%. Prior Study Comparison: 06/25/2008 Screening Mammogram, [facility]. 11/17/2010 Bilateral Screening Mammogram, [facility]. 03/28/2017 Bilateral Screening Mammogram, [facility]. Tissue Density: There are scattered fibroglandular densities. Findings: Analyzed By CAD. Pattern appears symmetrical. Benign calcifications in bilateral breast. No suspicious groups of microcalcifications, spiculated or lobular masses, architectural distortion or other secondary signs of malignancy are mammographically apparent. Overall Assessment: Benign, BI-RAD 2 Management: Screening Mammogram of both breasts in 1 year. A negative mammogram report should not preclude additional follow up of suspicious palpable abnormalities. Patient should continue monthly self breast exam. A clinical breast exam by your physician is recommended on an annual basis and results should be correlated with mammographic findings. Electronically signed and approved by: Evan Mcnally D.O. Radiologis
== END | disposition home or self-care (01) ==
LOC: RADMAMWWP 16:37
PROVIDERS: ATTEND Family Medicine
DX: Z12.31 Encounter for screening mammogram for malignant neoplasm of breast (principal)
CPT/HCPCS: 77067

== ENCOUNTER 2023-05-29 12:34 | Emergency (ER) | payer OTHER ==
[2023-05-29] MEDS ORDERED: KETOROLAC 15 MG/ML 1 ML VIAL IM STA (14:40)
[2023-05-29] MEDS ORDERED: LIDOCAINE 5% PATCH TOPICAL STA (14:41)
[2023-05-29] MEDS ORDERED: KETOROLAC 15 MG/ML 1 ML VIAL IVP STA (14:52)
--- NOTE | 2023-05-29 15:58 | CT ---
EXAMINATION TYPE: CT abdomen pelvis wo con DATE OF EXAM: 05/29/2023 COMPARISON: 08/08/2011 , CT chest 03/12/2019 HISTORY: 47-year-old female right flank pain CT DLP: 970.4 mGycm. Automated exposure control for dose reduction was used. TECHNIQUE: Contiguous axial scanning of the abdomen and pelvis without IV contrast. Coronal and sagit sarah reconstructions performed. FINDINGS: LUNG BASES: Heart normal size. Trace anterior pericardial fluid. Focal mitral annular calcifications noted. A band of atelectasis at the periphery of the left base. No pleural effusion. LIVER/GB: Peripheral wedge-shaped area of hypodensity right hepatic dome, mid hepatic dome, and later al left liver lobe. The age and etiology is unclear, noted to be new from 2010. However, we note the appearance of marked fatty infiltration on the patient's 03/12/2019 CT chest. PANCREAS: No significant abnormality is seen. SPLEEN: No significant abnormality is seen. ADRENALS: No significant abnormality is seen. KIDNEYS: There is a punctate 2 mm stone at the right UPJ with mild right-sided hydronephrosis and per inephric edema and fat stranding. BOWEL: Normal appendix. Mild to moderate stool burden. A few sigmoid colonic diverticula. No pericolo janet inflammatory change. The dilated small bowel, free fluid, or free air. LYMPH NODES: No significant abnormality is seen. OTHER: No significant abnormality is seen. PELVIS: Pelvic phleboliths. Bladder is urine distended. Uterus anteverted. Both ovaries are visualize d. No abnormal fluid collection in the pelvis. BONES: Moderate degenerative disc disease L5-S1. IMPRESSION: 1. A punctate 2 mm stone at the right UPJ with mild obstructive uropathy. 2. Peripheral wedge-shaped areas of hypodensity within the liver. 3 such areas are present. The appe arance may be seen with prior hepatic infarcts. However, we note that the previous severe fatty infil tration of the liver as seen in 2019 seems to have improved, and so, these areas could alternatively represent residual focal fat 3. Minimal sigmoid diverticulosis without acute diverticulitis.
[2023-05-29 16:19] LABS: Basophils % (A) 0 %; Eosinophils # (A) 0.2 k/uL (0-0.7); Eosinophils % (A) 2 %; HCT 43.9 % (34.0-46.0); HGB 15.4 gm/dL (11.4-16.0); Lymphocytes # (A) 3.3 k/uL (1.0-4.8); Lymphocytes % (A) 26 %; MCH 32.6 pg (25.0-35.0); MCV 93.2 fL (80.0-100.0); Mean Platelet Volume 10.1; Monocytes # (A) 0.5 k/uL (0-1.0); Monocytes % (A) 4 %; Neutrophils # (A) 8.6 k/uL (1.3-7.7); Neutrophils % (A) 67 %; Platelet Count 208 k/uL (150-450); RBC 4.71 m/uL (3.80-5.40); RDW 12.9 % (11.5-15.5); WBC 12.8 k/uL (3.8-10.6)
[2023-05-29 16:27] LABS: Appearance,Urine Cloudy (Clear); Bilirubin,Urine Negative (Negative); Blood,Urine Large (Negative); Color,Urine Yellow; Glucose,Urine (UA) 3+ (Negative); Leukocyte Esterase,Urine Negative (Negative); Mucus,Urine Few /hpf; Nitrite,Urine Negative (Negative); Protein,Urine 1+ (Negative); RBC,Urine 163 /hpf (0-5); Specific Gravity,Urine 1.019 (1.001-1.035); Squamous Epithelial Cell,Urine 8 /hpf (0-4); Urobilinogen,Urine <2.0 mg/dL (<2.0); WBC,Urine 5 /hpf (0-5)
[2023-05-29] MEDS ORDERED: TAMSULOSIN 0.4 MG CAP.ER.24H PO STA (16:37)
[2023-05-29] MEDS ORDERED: ONDANSETRON 4 MG/2 ML VIAL IVP STA (16:38)
[2023-05-29 16:48] LABS: Ketones,Urine 2+ (Negative)
[2023-05-29 16:54] LABS: ALT 23 U/L (4-34); AST 24 U/L (14-36); African American GFR (CKD) >90 (>60 ml/min/1.73 sqM); Albumin 4.6 g/dL (3.5-5.0); Alkaline Phosphatase 84 U/L (38-126); Anion Gap 14 mmol/L; Blood Urea Nitrogen 16 mg/dL (7-17); Calcium 9.9 mg/dL (8.4-10.2); Carbon Dioxide 19 mmol/L (22-30); Chloride 108 mmol/L (98-107); Glucose 222 mg/dL (74-99); Lipase 165 U/L (23-300); Non-African American GFR(CKD) >90 (>60 ml/min/1.73 sqM); Potassium 3.8 mmol/L (3.5-5.1); Sodium 141 mmol/L (137-145); Total Bilirubin 0.5 mg/dL (0.2-1.3); Total Protein 7.6 g/dL (6.3-8.2)
--- NOTE | 2023-05-29 17:20 | ED ---
Back Pain HPI - General Chief Complaint: Back Pain/Injury Stated Complaint: back pain Time Seen by Provider: 05/29/23 14:16 Source: patient Limitations: no limitations - History of Present Illness Initial Comments: Patient is a 47-year-old female who presents emergency department for right back pain. Patient states it woke her up this morning. Describes an intermittent sharp pain which radiates to her right flank. Reports nausea with vomiting. Denies fever, chills, burning with urination, urinary frequency/urgency, blood in urine. No history of kidney stones or kidney infection. - Related Data Home Medications Medication Instructions Recorded Confirmed Doxepin HCl [SINEquan] 150 mg PO HS 06/27/15 12/26/21 Cyclobenzaprine [Flexeril] 10 mg PO TID PRN 03/24/18 12/26/21 Ibuprofen [Motrin] 600 mg PO TID PRN 03/24/18 12/26/21 Medroxyprogesterone Acetate 150 mg IM Q84D 03/24/18 12/26/21 [Depo-Provera] Morphine Sulfate [Morphine Sulfate 30 mg PO BID PRN 03/24/18 12/26/21 ER] Omeprazole [PriLOSEC] 20 mg PO HS 03/24/18 12/26/21 ALPRAZolam [Xanax] 0.5 mg PO HS 03/12/19 12/26/21 Dulaglutide [Trulicity] 3 mg SQ SA 12/25/21 12/26/21 Erenumab-Aooe [Aimovig 70 mg SQ Q30D 12/25/21 12/26/21 Autoinjector] HYDROcodone/APAP 10-325MG [[place] 1 tab PO QID PRN 12/25/21 12/26/21 10-325] Pioglitazone [Actos] 30 mg PO HS 12/25/21 12/26/21 Rizatriptan Benzoate [Rizatriptan] 10 mg PO DAILY PRN 12/25/21 12/26/21 cloNIDine HCL [Catapres] 0.2 mg PO HS 12/25/21 12/26/21 lisinopriL 2.5 mg PO HS 12/25/21 12/26/21 traZODone HCL 50 mg PO HS 12/25/21 12/26/21 Previous Rx's Medication Instructions Recorded Ibuprofen [Motrin] 800 mg PO Q8HR PRN #30 tab 05/29/23 Ondansetron Odt [Zofran Odt] 4 mg PO Q8HR PRN #10 tab 05/29/23 Tamsulosin [Flomax] 0.4 mg PO DAILY #7 cap 05/29/23 Allergies Allergy/AdvReac Type Severity Reaction Status Date / Time adhesive Allergy Rash/Hives Verified 05/29/23 12:38 meperidine HCl [From Demerol] Allergy Rash/Hives; Verified 05/29/23 12:38 LOSS OF VISION TEMPORARY caffeine AdvReac Nausea Verified 05/29/23 12:38 diphenhydramine HCl AdvReac IF TAKING Verified 05/29/23 12:38 [From Benadryl] MORE THAN 2 TABLETS, ARMS GO NUMB Iodinated Contrast Media AdvReac Nausea & Verified 05/29/23 12:38 [Iodinated Contrast Media - Vomiting, IV Dye] SEVERE GAINES Penicillins AdvReac Vomiting Verified 05/29/23 12:38 steroids AdvReac INSOMNIA, Uncoded 05/29/23 12:38 INTENSIFIES EFFECTS Review of Systems ROS Statement: Those systems with pertinent positive or pertinent negative responses have been documented in the HPI. ROS Other: All systems not noted in ROS Statement are negative. Past Medical History Past Medical History: Fibromyalgia, GERD/Reflux, Osteoarthritis (OA), Rheumatoid Arthritis (RA), Skin Disorder Additional Past Medical History / Comment(s): Migraines. DDD. WITH BOWEL MOVEMENT PASSES BLOOD CLOTS FROM RECTUM. ECZEMA.,bACK History of Any Multi-Drug Resistant Organisms: None Reported Past Surgical History: Back Surgery, Section, Orthopedic Surgery, Uterine Ablation Additional Past Surgical History / Comment(s): Laprascopy, D&C X2, HYSTEROSCOPY, Sinus Surgery. KNEE SCOPES - 5 ON RT, 2 ON LT. Additional Past Anesthesia/Blood Transfusion Reaction / Comment(s): CRIES WHEN AWAKENING. Past Psychological History: Anxiety, Depression, Panic Disorder Smoking Status: Current every day smoker Past Alcohol Use History: None Reported Past Drug Use History: None Reported - Past Family History Father Family Medical History: Cancer Additional Family Medical History / Comment(s): SKIN CA General Exam Limitations: no limitations General appearance: alert Eye exam: Present: normal appearance, PERRL, EOMI. Absent: scleral icterus, conjunctival injection, periorbital swelling Respiratory exam: Present: normal lung sounds bilaterally. Absent: respiratory distress, wheezes, rales, rhonchi, stridor Cardiovascular Exam: Present: regular rate, normal rhythm, normal heart sounds. Absent: systolic murmur, diastolic murmur, rubs, gallop, clicks GI/Abdominal exam: Present: soft, normal bowel sounds. Absent: distended, tenderness, guarding, rebound, rigid Back exam: Present: normal inspection, full ROM, CVA tenderness (R). Absent: CVA tenderness (L), paraspinal tenderness, vertebral tenderness Neurological exam: Present: alert Psychiatric exam: Present: normal affect, normal mood Skin exam: Present: warm, dry, intact, normal color. Absent: rash Course Vital Signs 05/29/23 05/29/23 12:35 17:45 Temperature 98.5 F 97.9 F Pulse Rate 78 100 Respiratory 22 16 Rate Blood Pressure 127/83 121/81 O2 Sat by Pulse 98 99 Oximetry Medical Decision Making - Medical Decision Making Was pt. sent in by a medical professional or institution (, PA, GEOPHYSICAL DRAFTER, urgent care, hospital, or long term...) When possible be specific @ -No Did you speak to anyone other than the patient for history (EMS, parent, family, police, friend...)? What history was obtained from this source @ -No Did you review nursing and triage notes (agree or disagree)? Why? @ -I reviewed and agree with nursing and triage notes Were old charts reviewed (outside hosp., previous admission, EMS record, old EKG, old radiological studies, urgent care reports/EKG's, long term records)? Report findings @ -No old charts were reviewed Differential Diagnosis (chest pain, altered mental status, abdominal pain women, abdominal pain men, vaginal bleeding, weakness, fever, dyspnea, syncope, headache, dizziness, GI bleed, back pain, seizure, CVA, palpatations, mental health)? @ Differential Abdominal Pain Women: Appendicitis, Cholecystitis, diverticulosis, ischemic bowel, pancreatitis, hepatitis, UTI, gastroenteritis, AAA, incarcerated hernia, bowel obstruction, constipation, inflammatory bowel, hepatitis, peptic ulcer disease, splenic infarction, perforated viscus, vulvitis, ovarian torsion, PID, kidney stone, placenta abruption, this is not meant to be an all-inclusive list EKG interpreted by me (3pts min.). @ -As above X-rays interpreted by me (1pt min.). @ -None done CT interpreted by me (1pt min.). @ -2 mm stone at the right ureteropelvic junction with mild obstructive uropathy. Peripheral wedge-shaped areas of hypodensity within the liver, possibly prior infarcts versus residual focal fat U/S interpreted by me (1pt. min.). @ -None done What testing was considered but not performed or refused? (CT, X-rays, U/S, labs)? Why? @ -None What meds were considered but not given or refused? Why? @ -None Did you discuss the management of the patient with other professionals (professionals i.e. , PA, GEOPHYSICAL DRAFTER, lab, RT, psych nurse, social media content manager, sugar mill worker, teacher, navigation officer, director case)? Give summary @ -No Was smoking cessation discussed for >3mins.? @ -No Was critical care preformed (if so, how long)? @ -No Were there social determinants of health that impacted care today? How? (Homelessness, low income, unemployed, alcoholism, drug addiction, transportation, low edu. Level, literacy, decrease access to med. care, longterm, rehab)? @ -No Was there de-escalation of care discussed even if they declined (Discuss DNR or withdrawal of care, Hospice)? DNR status @ -No What co-morbidities impacted this encounter? (DM, HTN, Smoking, COPD, CAD, Cancer, CVA, ARF, Chemo, Hep., AIDS, mental health diagnosis, sleep apnea, morbid obesity)? @ -None Was patient admitted / discharged? Hospital course, mention meds given and route, prescriptions, significant lab abnormalities, going to OR and other pertinent info. @ -Patient presenting with flank pain and vomiting. Clinical presentation consistent with kidney stone. CT interpreted by myself showing a 2 mm stone at the right UPJ with mild obstructive uropathy. Kidney function is normal. There is mild metabolic acidosis CO2 at 19, likely related to vomiting. Results discussed with patient. We discussed incidental CT findings regarding the liver. Patient feeling improved she had no further episodes of vomiting. She will be discharged with Flomax, pain and nausea management for kidney stone. She is referred to urology for further evaluation and management. Discussed return parameters. Undiagnosed new problem with uncertain prognosis? @ -No Drug Therapy requiring intensive monitoring for toxicity (Heparin, Nitro, Insulin, Cardizem)? @ -No Were any procedures done? @ -No Diagnosis/symptom? @ -Kidney stone Acute, or Chronic, or Acute on Chronic? @ -Acute Uncomplicated (without systemic symptoms) or Complicated (systemic symptoms)? @ -Uncomplicated Side effects of treatment? @ -No Exacerbation, Progression, or Severe Exacerbation? @ -No Poses a threat to life or bodily function? How? (Chest pain, [place], GA, pneumonia, PE, COPD, DKA, ARF, appy, cholecystitis, CVA, Diverticulitis, Homicidal, Suicidal, threat to staff... and all critical care pts) @ -No Dr. Benavides is my attending - Lab Data Result diagrams: 05/29/23 15:32 05/29/23 15:32 Lab Results 05/29/23 05/29/23 05/29/23 Range/Units 15:32 15:32 15:32 WBC 12.8 H (3.8-10.6) k/uL RBC 4.71 (3.80-5.40) m/uL Hgb 15.4 (11.4-16.0) gm/dL Hct 43.9 (34.0-46.0) % MCV 93.2 (80.0-100.0) fL MCH 32.6 (25.0-35.0) pg MCHC 35.0 (31.0-37.0) g/dL RDW 12.9 (11.5-15.5) % Plt Count 208 (150-450) k/uL MPV 10.1 Neutrophils % 67 % Lymphocytes % 26 % Monocytes % 4 % Eosinophils % 2 % Basophils % 0 % Neutrophils # 8.6 H (1.3-7.7) k/uL Lymphocytes # 3.3 (1.0-4.8) k/uL Monocytes # 0.5 (0-1.0) k/uL Eosinophils # 0.2 (0-0.7) k/uL Basophils # 0.0 (0-0.2) k/uL Sodium 141 (137-145) mmol/L Potassium 3.8 (3.5-5.1) mmol/L Chloride 108 H (98-107) mmol/L Carbon Dioxide 19 L (22-30) mmol/L Anion Gap 14 mmol/L BUN 16 (7-17) mg/dL Creatinine 0.47 L (0.52-1.04) mg/dL Est GFR (CKD-EPI)AfAm >90 (>60 ml/min/1.73 sqM) Est GFR (CKD-EPI)NonAf >90 (>60 ml/min/1.73 sqM) Glucose 222 H (74-99) mg/dL Plasma Lactic Acid Antione (0.7-2.0) mmol/L Calcium 9.9 (8.4-10.2) mg/dL Total Bilirubin 0.5 (0.2-1.3) mg/dL AST 24 (14-36) U/L ALT 23 (4-34) U/L Alkaline Phosphatase 84 (38-126) U/L Total Protein 7.6 (6.3-8.2) g/dL Albumin 4.6 (3.5-5.0) g/dL Lipase 165 (23-300) U/L Urine Color Yellow Urine Appearance Cloudy H (Clear) Urine pH 6.0 (5.0-8.0) Ur Specific [place] 1.019 (1.001-1.035) Urine Protein 1+ H (Negative) Urine Glucose (UA) 3+ H (Negative) Urine Ketones 2+ H (Negative) Urine Blood Large H (Negative) Urine Nitrite Negative (Negative) Urine Bilirubin Negative (Negative) Urine Urobilinogen <2.0 (<2.0) mg/dL Ur Leukocyte Esterase Negative (Negative) Urine RBC 163 H (0-5) /hpf Urine WBC 5 (0-5) /hpf Ur Squamous Epith Cells 8 H (0-4) /hpf Urine Mucus Few H (None) /hpf 05/29/23 Range/Units 15:32 WBC (3.8-10.6) k/uL RBC (3.80-5.40) m/uL Hgb (11.4-16.0) gm/dL Hct (34.0-46.0) % MCV (80.0-100.0) fL MCH (25.0-35.0) pg MCHC (31.0-37.0) g/dL RDW (11.5-15.5) % Plt Count (150-450) k/uL MPV Neutrophils % % Lymphocytes % % Monocytes % % Eosinophils % % Basophils % % Neutrophils # (1.3-7.7) k/uL Lymphocytes # (1.0-4.8) k/uL Monocytes # (0-1.0) k/uL Eosinophils # (0-0.7) k/uL Basophils # (0-0.2) k/uL Sodium (137-145) mmol/L Potassium (3.5-5.1) mmol/L Chloride (98-107) mmol/L Carbon Dioxide (22-30) mmol/L Anion Gap mmol/L BUN (7-17) mg/dL Creatinine (0.52-1.04) mg/dL Est GFR (CKD-EPI)AfAm (>60 ml/min/1.73 sqM) Est GFR (CKD-EPI)NonAf (>60 ml/min/1.73 sqM) Glucose (74-99) mg/dL Plasma Lactic Acid Antione 1.4 (0.7-2.0) mmol/L Calcium (8.4-10.2) mg/dL Total Bilirubin (0.2-1.3) mg/dL AST (14-36) U/L ALT (4-34) U/L Alkaline Phosphatase (38-126) U/L Total Protein (6.3-8.2) g/dL Albumin (3.5-5.0) g/dL Lipase (23-300) U/L Urine Color Urine Appearance (Clear) Urine pH (5.0-8.0) Ur Specific [place] (1.001-1.035) Urine Protein (Negative) Urine Glucose (UA) (Negative) Urine Ketones (Negative) Urine Blood (Negative) Urine Nitrite (Negative) Urine Bilirubin (Negative) Urine Urobilinogen (<2.0) mg/dL Ur Leukocyte Esterase (Negative) Urine RBC (0-5) /hpf Urine WBC (0-5) /hpf Ur Squamous Epith Cells (0-4) /hpf Urine Mucus (None) /hpf Disposition Clinical Impression: Kidney stone Disposition: HOME SELF-CARE Condition: Good Instructions (If sedation given, give patient instructions): Acute Low Back Pain (ED) Additional Instructions: Take medication as directed. Please follow-up with urology in 1-2 days. Return to the emergency department if you experience new, concerning, or worsening symptoms. Prescriptions: Tamsulosin [Flomax] 0.4 mg PO DAILY #7 cap Ibuprofen [Motrin] 800 mg PO Q8HR PRN #30 tab PRN Reason: Pain Ondansetron Odt [Zofran Odt] 4 mg PO Q8HR PRN #10 tab PRN Reason: Nausea Is patient prescribed a controlled substance at d/c from ED?: No Referrals: Shaun Taveras MD [Primary Care Provider] - 1-2 days Lamonte Silver MD [STAFF PHYSICIAN] - 1-2 days
[2023-05-29 17:47] VITALS: BP 121/81; PULSE 100; RESP 16; TEMP 97.9
== END 2023-05-29 17:47 | disposition home or self-care (01) ==
LOC: EC 12:34
DX: N13.2 Hydronephrosis with renal and ureteral calculous obstruction (principal); K57.30 Diverticulosis of large intestine without perforation or abscess without bleeding; K21.9 Gastro-esophageal reflux disease without esophagitis; M19.90 Unspecified osteoarthritis, unspecified site; F32.A Depression, unspecified; F41.9 Anxiety disorder, unspecified; F17.200 Nicotine dependence, unspecified, uncomplicated; Z79.1 Long term (current) use of non-steroidal anti-inflammatories (NSAID); Z91.09 Other allergy status, other than to drugs and biological substances; Z88.6 Allergy status to analgesic agent; Z91.041 Radiographic dye allergy status; Z88.0 Allergy status to penicillin; Z88.8 Allergy status to other drugs, medicaments and biological substances; Z88.5 Allergy status to narcotic agent
CPT/HCPCS: 36415; 80053; 83605; 83690; 85025; 81001; 74176; 99284; 96374; 96375; J2405; J1885

== ENCOUNTER 2023-11-24 19:48 | Emergency (ER) | payer OTHER ==
[2023-11-24] MEDS ORDERED: SODIUM CHLORIDE 0.9% 1,000 ML IV ONE ×2 (20:07→22:43)
[2023-11-24] MEDS ORDERED: IBUPROFEN 600 MG TAB PO STA (20:07)
[2023-11-24] MEDS ORDERED: ACETAMINOPHEN TAB 325 MG TAB PO STA (20:07)
[2023-11-24 20:21] LABS: Appearance,Urine Turbid (Clear); Bacteria,Urine Occasional /hpf; Bilirubin,Urine Negative (Negative); Blood,Urine Large (Negative); Color,Urine Light Yellow; Glucose,Urine (UA) 4+ (Negative); Ketones,Urine Trace (Negative); Leukocyte Esterase,Urine Large (Negative); Nitrite,Urine Negative (Negative); Protein,Urine 1+ (Negative); RBC,Urine >182 /hpf (0-5); Specific Gravity,Urine 1.024 (1.001-1.035); Squamous Epithelial Cell,Urine 1 /hpf (0-4); Urobilinogen,Urine <2.0 mg/dL (<2.0); WBC,Urine >182 /hpf (0-5)
[2023-11-24 20:41] LABS: Basophils % (A) 0 %; Eosinophils # (A) 0.4 k/uL (0-0.7); Eosinophils % (A) 2 %; HCT 43.1 % (34.0-46.0); HGB 14.6 gm/dL (11.4-16.0); Lymphocytes # (A) 1.2 k/uL (1.0-4.8); Lymphocytes % (A) 5 %; MCH 31.5 pg (25.0-35.0); MCHC 33.8 g/dL (31.0-37.0); MCV 93.1 fL (80.0-100.0); Mean Platelet Volume 8.9; Monocytes # (A) 0.7 k/uL (0-1.0); Monocytes % (A) 3 %; Neutrophils # (A) 19.9 k/uL (1.3-7.7); Neutrophils % (A) 89 %; Platelet Count 215 k/uL (150-450); RBC 4.63 m/uL (3.80-5.40); RDW 13.5 % (11.5-15.5); WBC 22.3 k/uL (3.8-10.6)
[2023-11-24 22:00] LABS: ALT 24 U/L (4-34); African American GFR (CKD) >90 (>60 ml/min/1.73 sqM); Albumin 4.1 g/dL (3.5-5.0); Anion Gap 13 mmol/L; Blood Urea Nitrogen 11 mg/dL (7-17); Calcium 9.3 mg/dL (8.4-10.2); Carbon Dioxide 13 mmol/L (22-30); Chloride 109 mmol/L (98-107); Glucose 262 mg/dL (74-99); Non-African American GFR(CKD) >90 (>60 ml/min/1.73 sqM); Sodium 135 mmol/L (137-145); Total Protein 7.1 g/dL (6.3-8.2)
[2023-11-24 22:01] LABS: AST 29 U/L (14-36); Alkaline Phosphatase 70 U/L (38-126); Potassium 4.1 mmol/L (3.5-5.1)
[2023-11-24] MEDS ORDERED: cefTRIAXone IN SWFI 1,000 MG/10 ML SYRINGE IVP STA (22:43)
[2023-11-25] MEDS ORDERED: HYDROcodone/APAP 5-325MG 1 EACH TAB PO STA (00:49)
[2023-11-25] MEDS ORDERED: ONDANSETRON 4 MG/2 ML VIAL IVP STA (00:58)
[2023-11-25] MEDS ORDERED: ALPRAZolam 0.25 MG TAB PO STA (00:58)
[2023-11-25] MEDS ORDERED: SODIUM CHLORIDE 0.9% 1,000 ML IV SCH (01:00)
[2023-11-25 01:07] VITALS: BP 125/84; PULSE 144; RESP 20; TEMP 98.2
--- NOTE | 2023-11-25 01:17 | CT ---
EXAMINATION TYPE: CT abdomen pelvis wo con CT DLP: 678.4 mGycm, Automated exposure control for dose reduction was used. DATE OF EXAM: 11/24/2023 8:57 PM COMPARISON: CT 05/29/2023 CLINICAL INDICATION:Female, 48 years old with history of L flank pain; Left side flank pain. Hx of re nal stones. TECHNIQUE: Axial CT of the abdomen and pelvis. Sagittal and coronal reformats were created on a [employer] workstation. Contrast used: mL of , (none if empty) Oral contrast used: without Oral Contrast (none if empty) FINDINGS: Exam is limited without contrast. LOWER CHEST: Unremarkable lung bases. Heart is normal in size. Radiodensity again seen which could re late to heavy calcifications or mitral valve prosthesis. Small amounts of pericardial fluid anteriorl y and laterally on the right. ABDOMEN LIVER: Previous wedge-shaped areas of hypoattenuation in the liver are no longer evident. Liver appea rs mildly heterogenous. GALLBLADDER AND BILE DUCTS: Gallbladder appears mildly distended without definite evidence of pericho lecystic inflammation or calcified gallstones. The CBD is considered mildly prominent at 8.5 mm. PANCREAS: Fatty infiltrated without acute finding. SPLEEN: Unremarkable. ADRENAL GLANDS: Unremarkable. KIDNEYS AND URETERS: Mild bilateral perinephric stranding, more on the left. Punctate calculus in the lower pole on the right, otherwise no sizable intrarenal calculi are observed. No hydroureteronephro sis on the right. On the left, there is mild/moderate hydroureteronephrosis with periureteric fat str anding throughout. However no clear evidence of ureteral or bladder calculus is identified. PELVIS BLADDER: Bladder is mostly empty but there is the appearance of perivesical fat stranding which exten ds in contiguity with the left periureteric stranding. Multiple pelvic phleboliths are present. REPRODUCTIVE: Uterus and adnexal regions appear grossly unremarkable, though not well assessed by CT. ABDOMEN & PELVIS STOMACH AND BOWEL: Stomach is mildly distended with heterogeneous fluid contents. Small bowel loops a re unremarkable without evidence of obstruction. The appendix is normal. Moderate colonic stool, some of which is relatively radiodense which could reflect prior contrast. There are several diverticula seen without evidence of diverticulitis. PERITONEUM/RETROPERITONEUM: No evidence of pneumoperitoneum or free fluid. VASCULATURE: Mild atherosclerotic calcifications are present throughout the abdominal aorta and its b ranches. No evidence of aortic aneurysm. LYMPH NODES: No gross evidence for lymphadenopathy. SOFT TISSUE/ABDOMINAL WALL: Mild broad-based laxity along the anterior abdominal wall between the rec tus muscles, with tiny super imposed fat-containing umbilical hernia. MUSCULOSKELETAL: No acute osseous abnormalities. Moderate disc degeneration changes are present throu ghout the thoracolumbar spine worst at L5-S1. Small foci of sclerosis in the bony pelvis and sacrum, probably relate to bone islands. IMPRESSION: 1. Punctate nonobstructing calculus in the lower pole right kidney. 2. Mild/moderate left-sided hydroureteronephrosis, with perinephric, periureteral, and perivesicular fat stranding. This could relate to recently passed calculus, and/or superimposed UTI. Correlate cli nically. 3. Nonspecific mildly prominent gallbladder without calcified gallstones identified. CBD is mildly p rominent. Please correlate clinically, with LFTs. Gallbladder ultrasound and/or MRCP may be considere d as warranted.
--- NOTE | 2023-11-25 01:59 | ED ---
Female Urogenital HPI - General Chief complaint: Urogenital Stated complaint: UTI Time Seen by Provider: 11/24/23 20:00 Source: patient Mode of arrival: ambulatory Limitations: no limitations - History of Present Illness Initial comments: 48-year-old female presenting with chief complaint of burning with urination and left side pain. Patient states that on she started to have dysuria and suprapubic tenderness. She attempted to alleviate this is cranberry pills hydration and NSAIDs. Symptoms continued to worsen and patient now has left- sided flank pain. She is febrile upon arrival. Patient believes that she passed a kidney stone just prior to obtaining the history. No nausea or vomiting. No chest pain or difficulty breathing. No palpitations or weakness. - Related Data Home Medications Medication Instructions Recorded Confirmed Doxepin HCl [SINEquan] 150 mg PO HS 06/27/15 12/26/21 Cyclobenzaprine [Flexeril] 10 mg PO TID PRN 03/24/18 12/26/21 Ibuprofen [Motrin] 600 mg PO TID PRN 03/24/18 12/26/21 Medroxyprogesterone Acetate 150 mg IM Q84D 03/24/18 12/26/21 [Depo-Provera] Morphine Sulfate [Morphine Sulfate 30 mg PO BID PRN 03/24/18 12/26/21 ER] Omeprazole [PriLOSEC] 20 mg PO HS 03/24/18 12/26/21 ALPRAZolam [Xanax] 0.5 mg PO HS 03/12/19 12/26/21 Dulaglutide [Trulicity] 3 mg SQ SA 12/25/21 12/26/21 Erenumab-Aooe [Aimovig 70 mg SQ Q30D 12/25/21 12/26/21 Autoinjector] HYDROcodone/APAP 10-325MG [[place] 1 tab PO QID PRN 12/25/21 12/26/21 10-325] Pioglitazone [Actos] 30 mg PO HS 12/25/21 12/26/21 Rizatriptan Benzoate [Rizatriptan] 10 mg PO DAILY PRN 12/25/21 12/26/21 cloNIDine HCL [Catapres] 0.2 mg PO HS 12/25/21 12/26/21 lisinopriL 2.5 mg PO HS 12/25/21 12/26/21 traZODone HCL 50 mg PO HS 12/25/21 12/26/21 Previous Rx's Medication Instructions Recorded Ibuprofen [Motrin] 800 mg PO Q8HR PRN #30 tab 05/29/23 Ondansetron Odt [Zofran Odt] 4 mg PO Q8HR PRN #10 tab 05/29/23 Tamsulosin [Flomax] 0.4 mg PO DAILY #7 cap 05/29/23 Cefpodoxime Proxetil [Vantin] 200 mg PO Q12HR 14 Days #28 tab 11/25/23 Allergies Allergy/AdvReac Type Severity Reaction Status Date / Time adhesive Allergy Rash/Hives Verified 11/24/23 19:58 meperidine HCl [From Demerol] Allergy Rash/Hives; Verified 11/24/23 19:58 LOSS OF VISION TEMPORARY caffeine AdvReac Nausea Verified 11/24/23 19:58 diphenhydramine HCl AdvReac IF TAKING Verified 11/24/23 19:58 [From Benadryl] MORE THAN 2 TABLETS, ARMS GO NUMB Iodinated Contrast Media AdvReac Nausea & Verified 11/24/23 19:58 [Iodinated Contrast Media - Vomiting, IV Dye] SEVERE GAINES Penicillins AdvReac Vomiting Verified 11/24/23 19:58 steroids AdvReac INSOMNIA, Uncoded 11/24/23 19:58 INTENSIFIES EFFECTS Review of Systems ROS Statement: Those systems with pertinent positive or pertinent negative responses have been documented in the HPI. ROS Other: All systems not noted in ROS Statement are negative. Past Medical History Past Medical History: Fibromyalgia, GERD/Reflux, Osteoarthritis (OA), Rheumatoid Arthritis (RA), Skin Disorder Additional Past Medical History / Comment(s): Migraines. DDD. WITH BOWEL MOV EMENT PASSES BLOOD CLOTS FROM RECTUM. ECZEMA.,bACK History of Any Multi-Drug Resistant Organisms: None Reported Past Surgical History: Back Surgery, Section, Orthopedic Surgery, Uterine Ablation Additional Past Surgical History / Comment(s): Laprascopy, D&C X2, HYSTEROSCOPY, Sinus Surgery. KNEE SCOPES - 5 ON RT, 2 ON LT. Additional Past Anesthesia/Blood Transfusion Reaction / Comment(s): CRIES WHEN AWAKENING. Past Psychological History: Anxiety, Depression, Panic Disorder Smoking Status: Former smoker Past Alcohol Use History: None Reported Past Drug Use History: None Reported - Past Family History Father Family Medical History: Cancer Additional Family Medical History / Comment(s): SKIN CA General Exam Limitations: no limitations General appearance: alert, in no apparent distress Head exam: Present: atraumatic, normocephalic Eye exam: Present: normal appearance, EOMI Neck exam: Present: normal inspection Respiratory exam: Present: normal lung sounds bilaterally. Absent: respiratory distress, wheezes, rales, rhonchi, stridor Cardiovascular Exam: Present: normal rhythm, tachycardia, normal heart sounds. Absent: systolic murmur, diastolic murmur, rubs, gallop, clicks GI/Abdominal exam: Present: soft, tenderness (Left-sided tenderness). Absent: distended, guarding, rebound, rigid Back exam: Present: normal inspection, CVA tenderness (L). Absent: CVA tenderness (R) Neurological exam: Present: alert, oriented X3 Psychiatric exam: Present: normal affect, normal mood Skin exam: Present: warm, dry Course Vital Signs 11/24/23 11/24/23 11/24/23 19:55 21:25 22:41 Temperature 99.7 F H 99.4 F 98.4 F Pulse Rate 140 H 119 H Respiratory 20 18 Rate Blood Pressure 109/75 101/70 O2 Sat by Pulse 99 95 Oximetry 11/25/23 00:52 Temperature 98.2 F Pulse Rate 144 H Respiratory 20 Rate Blood Pressure 125/84 O2 Sat by Pulse 97 Oximetry Medical Decision Making - Medical Decision Making Was pt. sent in by a medical professional or institution (, PA, SKILLED NURSING PROFESSIONAL, urgent care, hospital, or fpc...) When possible be specific @ -No Did you speak to anyone other than the patient for history (EMS, parent, family, police, friend...)? What history was obtained from this source @ -No Did you review nursing and triage notes (agree or disagree)? Why? @ -I reviewed and agree with nursing and triage notes Were old charts reviewed (outside hosp., previous admission, EMS record, old EKG, old radiological studies, urgent care reports/EKG's, fpc records)? Report findings @ -No old charts were reviewed Differential Diagnosis (chest pain, altered mental status, abdominal pain women, abdominal pain men, vaginal bleeding, weakness, fever, dyspnea, syncope, headache, dizziness, GI bleed, back pain, seizure, CVA, palpatations, mental health, musculoskeletal)? @ -MDM Differential Abdominal Pain Women: Appendicitis, Cholecystitis, diverticulosis, ischemic bowel, pancreatitis, hepatitis, UTI, gastroenteritis, AAA, incarcerated hernia, bowel obstruction, constipation, inflammatory bowel, hepatitis, peptic ulcer disease, splenic infarction, perforated viscus, vulvitis, ovarian torsion, PID, kidney stone, placenta abruption... This is not meant to be an all-inclusive list EKG interpreted by me (3pts min.). @ -EKG shows sinus tachycardia ventricular rate 148. HI interval 135. QRS 98. QT 326. QTc 411. X-rays interpreted by me (1pt min.). @ -None done CT interpreted by me (1pt min.). @ -CT shows punctate nonobstructing calculus in the lower right kidney. Mild/moderate left-sided hydroureteronephrosis, with perinephritic, per ureteral, very vesicular fat stranding. This could relate to recently passed calculus, and/or superimposed UTI. Nonspecific mildly prominent gallbladder with no calcified gallstones identified. CBD is mildly prominent. Please correlate clinically with LFTs. Gallbladder ultrasound and/or MRCP may be considered as warranted U/S interpreted by me (1pt. min.). @ -None done What testing was considered but not performed or refused? (CT, X-rays, U/S, labs)? Why? @ -None What meds were considered but not given or refused? Why? @ -None Did you discuss the management of the patient with other professionals (professionals i.e. , PA, SKILLED NURSING PROFESSIONAL, lab, RT, psych nurse, social media marketing analyst, distance education coordinator, teacher, attendance officer, rn case management)? Give summary @ -No Was smoking cessation discussed for >3mins.? @ -No Was critical care preformed (if so, how long)? @ -No Were there social determinants of health that impacted care today? How? (Homelessness, low income, unemployed, alcoholism, drug addiction, transportation, low edu. Level, literacy, decrease access to med. care, alf, rehab)? @ -No Was there de-escalation of care discussed even if they declined (Discuss DNR or withdrawal of care, Hospice)? DNR status @ -No What co-morbidities impacted this encounter? (DM, HTN, Smoking, COPD, CAD, Cancer, CVA, ARF, Chemo, Hep., AIDS, mental health diagnosis, sleep apnea, morbid obesity)? @ -None Was patient admitted / discharged? Hospital course, mention meds given and route, prescriptions, significant lab abnormalities, going to OR and other pert inent info. @ -48-year-old female presenting with chief complaint of left-sided flank pain and dysuria. Symptoms progressing . Upon arrival she is febrile and tachycardic. She has positive left-sided CVA tenderness. WBC 22.3. Urine is positive for infectious process with large blood and large leukocytes. Patient was given 2 L fluid bolus and started on maintenance rate of 130 mL per hour. She is given [address] is consistent with recently passed stone and UTI. Patient states that when she went to the bathroom while here she felt as though she passed a kidney stone. On reassessment the patient reports improvement in her pain and is resting comfortably. However the patient's heart rate has increased to the 140s. EKG shows sinus tachycardia. Blood pressure is WNL. Patient was given xanax as She said that she was quite nervous, however tachycardia persisted. I informed the patient that she should be admitted overnight with evaluation by cardiology in the morning for this unexplained tachycardia. 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 The patient and I had a lengthy discussion on the importance of evaluation of this tachycardia. She continued to refuse admission. She is of sound mind and body and able to make her own decisions. She acknowledges that this may result in or permanent injury. Cefpodoxime 200 mg twice daily for 14 days is sent her pharmacy. She is strongly encouraged follow-up with her PCP and report back to ER with any new or worsening symptoms. Answered all questions and educated on alarms symptoms that should prompt immediate reevaluation. Patient signed AMA papers and left AGAINST MEDICAL ADVICE. I discussed this case with my attending Dr. Jenkins Undiagnosed new problem with uncertain prognosis? @ -No Drug Therapy requiring intensive monitoring for toxicity (Heparin, Nitro, Insulin, Cardizem)? @ -No Were any procedures done? @ -No Diagnosis/symptom? @ -Pyelonephritis, unexplained tachycardia Acute, or Chronic, or Acute on Chronic? @ -Acute Uncomplicated (without systemic symptoms) or Complicated (systemic symptoms)? @ -Complicated Side effects of treatment? @ -No Exacerbation, Progression, or Severe Exacerbation? @ -No Poses a threat to life or bodily function? How? (Chest pain, [place], [place], pneumonia, PE, COPD, DKA, ARF, appy, cholecystitis, CVA, Diverticulitis, Homicidal, Suicidal, threat to staff... and all critical care pts) @ -yes, we do not have a specified source for her tachycardia which leaves her susceptible to injury. Patient was strongly encouraged to stay for admission and evaluation by cardiology, she repeatedly refused - Lab Data Result diagrams: 11/24/23 20:25 11/24/23 21:00 Lab Results 11/24/23 11/24/23 11/24/23 Range/Units 20:03 20:25 20:25 WBC 22.3 H (3.8-10.6) k/uL RBC 4.63 (3.80-5.40) m/uL Hgb 14.6 (11.4-16.0) gm/dL Hct 43.1 (34.0-46.0) % MCV 93.1 (80.0-100.0) fL MCH 31.5 (25.0-35.0) pg MCHC 33.8 (31.0-37.0) g/dL RDW 13.5 (11.5-15.5) % Plt Count 215 (150-450) k/uL MPV 8.9 Neutrophils % 89 % Lymphocytes % 5 % Monocytes % 3 % Eosinophils % 2 % Basophils % 0 % Neutrophils # 19.9 H (1.3-7.7) k/uL Lymphocytes # 1.2 (1.0-4.8) k/uL Monocytes # 0.7 (0-1.0) k/uL Eosinophils # 0.4 (0-0.7) k/uL Basophils # 0.0 (0-0.2) k/uL Sodium (137-145) mmol/L Potassium (3.5-5.1) mmol/L Chloride (98-107) mmol/L Carbon Dioxide (22-30) mmol/L Anion Gap mmol/L BUN (7-17) mg/dL Creatinine (0.52-1.04) mg/dL Est GFR (CKD-EPI)AfAm (>60 ml/min/1.73 sqM) Est GFR (CKD-EPI)NonAf (>60 ml/min/1.73 sqM) Glucose (74-99) mg/dL Plasma Lactic Acid Antione 1.7 (0.7-2.0) mmol/L Calcium (8.4-10.2) mg/dL Total Bilirubin (0.2-1.3) mg/dL AST (14-36) U/L ALT (4-34) U/L Alkaline Phosphatase (38-126) U/L Total Protein (6.3-8.2) g/dL Albumin (3.5-5.0) g/dL Urine Color Light Yellow Urine Appearance Turbid H (Clear) Urine pH 6.0 (5.0-8.0) Ur Specific [place] 1.024 (1.001-1.035) Urine Protein 1+ H (Negative) Urine Glucose (UA) 4+ H (Negative) Urine Ketones Trace H (Negative) Urine Blood Large H (Negative) Urine Nitrite Negative (Negative) Urine Bilirubin Negative (Negative) Urine Urobilinogen <2.0 (<2.0) mg/dL Ur Leukocyte Esterase Large H (Negative) Urine RBC >182 H (0-5) /hpf Urine WBC >182 H (0-5) /hpf Urine WBC Clumps Many H (None) /hpf Ur Squamous Epith Cells 1 (0-4) /hpf Urine Bacteria Occasional H (None) /hpf 11/24/23 Range/Units 21:00 WBC (3.8-10.6) k/uL RBC (3.80-5.40) m/uL Hgb (11.4-16.0) gm/dL Hct (34.0-46.0) % MCV (80.0-100.0) fL MCH (25.0-35.0) pg MCHC (31.0-37.0) g/dL RDW (11.5-15.5) % Plt Count (150-450) k/uL MPV Neutrophils % % Lymphocytes % % Monocytes % % Eosinophils % % Basophils % % Neutrophils # (1.3-7.7) k/uL Lymphocytes # (1.0-4.8) k/uL Monocytes # (0-1.0) k/uL Eosinophils # (0-0.7) k/uL Basophils # (0-0.2) k/uL Sodium 135 L (137-145) mmol/L Potassium 4.1 (3.5-5.1) mmol/L Chloride 109 H (98-107) mmol/L Carbon Dioxide 13 L (22-30) mmol/L Anion Gap 13 mmol/L BUN 11 (7-17) mg/dL Creatinine 0.52 (0.52-1.04) mg/dL Est GFR (CKD-EPI)AfAm >90 (>60 ml/min/1.73 sqM) Est GFR (CKD-EPI)NonAf >90 (>60 ml/min/1.73 sqM) Glucose 262 H (74-99) mg/dL Plasma Lactic Acid Antione (0.7-2.0) mmol/L Calcium 9.3 (8.4-10.2) mg/dL Total Bilirubin 1.0 (0.2-1.3) mg/dL AST 29 (14-36) U/L ALT 24 (4-34) U/L Alkaline Phosphatase 70 (38-126) U/L Total Protein 7.1 (6.3-8.2) g/dL Albumin 4.1 (3.5-5.0) g/dL Urine Color Urine Appearance (Clear) Urine pH (5.0-8.0) Ur Specific [place] (1.001-1.035) Urine Protein (Negative) Urine Glucose (UA) (Negative) Urine Ketones (Negative) Urine Blood (Negative) Urine Nitrite (Negative) Urine Bilirubin (Negative) Urine Urobilinogen (<2.0) mg/dL Ur Leukocyte Esterase (Negative) Urine RBC (0-5) /hpf Urine WBC (0-5) /hpf Urine WBC Clumps (None) /hpf Ur Squamous Epith Cells (0-4) /hpf Urine Bacteria (None) /hpf Disposition Clinical Impression: Pyelonephritis, Tachycardia Disposition: LEFT AGAINST MEDICAL ADVICE Condition: Undetermined Instructions (If sedation given, give patient instructions): Kidney Infection (ED), Tachycardia (ED) Additional Instructions: You are leaving AGAINST MEDICAL ADVICE. You acknowledge that this has the potential to result in or permanent injury and we strongly advise that you stay for admission and further workup for elevated heart rate (also known as tachycardia). Follow-up with PCP and report back to ER with any new or worsening symptoms. Prescriptions: Cefpodoxime Proxetil [Vantin] 200 mg PO Q12HR 14 Days #28 tab Is patient prescribed a controlled substance at d/c from ED?: No Referrals: Antonio Hammond MD [Primary Care Provider] - 1-2 days Time of Disposition: 01:58
== END 2023-11-25 02:10 | disposition left against medical advice (07) ==
LOC: EC 19:48
DX: N13.6 Pyonephrosis (principal); I48.92 Unspecified atrial flutter; K21.9 Gastro-esophageal reflux disease without esophagitis; M19.90 Unspecified osteoarthritis, unspecified site; F41.9 Anxiety disorder, unspecified; F32.A Depression, unspecified; Z87.891 Personal history of nicotine dependence; Z79.1 Long term (current) use of non-steroidal anti-inflammatories (NSAID); Z79.899 Other long term (current) drug therapy; Z91.09 Other allergy status, other than to drugs and biological substances; Z88.0 Allergy status to penicillin; Z91.041 Radiographic dye allergy status; Z88.8 Allergy status to other drugs, medicaments and biological substances; Z88.5 Allergy status to narcotic agent; Z53.29 Procedure and treatment not carried out because of patient's decision for other reasons
CPT/HCPCS: 36415; 93005; 80053; 83605; 85025; 81001; 87040; 87086; 87077; 87186; 74176; 99284; 96374; 96375; 96361 ×2; J2405; J0696